=== PATIENT | female | born 1990 | race Caucasian/White ===

== ENCOUNTER 2016-06-19 17:29 | Emergency (ER) | payer BC, MEDICAID ==
[~2016-06-19 17:29] MED LIST: ADVI200T PO; CELE10TA PO; COLA50CA3 PO
[2016-06-19] MEDS ORDERED: PERCOCET 5MG/325MG TAB As Ordered ONE (18:43)
[2016-06-19] MEDS ORDERED: PENICILLIN V POTASSIUM 500 MG TAB As Ordered ONE (18:45)
--- NOTE | 2016-06-19 18:52 | EDDOCDS ---
Physician Documentation [facility] Name: Yovani Hernandez Age: 26 yrs Sex: Female : 1990 Arrival Date: 06/19/2016 Time: 17:29 Bed I9 / 22 Private MD: Leatha Easton Disposition: 06/19/16 18:41 Discharged to Home/Self Care. Impression: Fracture of tooth (traumatic) - with infection. - Condition is Stable. - Discharge Instructions: Tooth Fracture. - Prescriptions for Percocet 5- 325 mg Oral Tablet - take 1 tablet by ORAL route every 6 hours As needed MDD: 4 tabs; 20 tablet. penicillin V potassium 500 mg Oral Tablet - take 1 tablet by ORAL route 4 times per day for 10 days; 40 tablet. - Medication Reconciliation, Local Pharmacy Hours form. - Follow up: Private Physician; When: 1 - 2 days. - Problem is new. - Symptoms are unchanged. - Notes: follow up with your dentist tomorrow. return if worsening symptoms Historical: - Allergies: migraine medicine (heart races); - Home Meds: 1. Xanax 1 mg Oral tab 1 tab four times a day (Last dose: 06/19/2016 15:30) 2. Prozac 20 mg Oral cap 1 cap once daily (Last dose: 06/19/2016 09:00) 3. acetaminophen-codeine 300-30 mg Oral tab 1 tab daily (Last dose: 06/19/2016 16:30) - PMHx: Anxiety; Depression; back pain; - PSHx: none; - Social history: Smoking status: Patient uses tobacco products, light tobacco smoker. No barriers to communication noted, The patient speaks fluent Salvadorean. - Family history: Not pertinent. - : The pt / caregiver states he / she is not on anticoagulants. Home medication list is obtained from the patient. - Exposure Risk Screening:: None identified. 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 5 in. (165.10 cm) (R); 17:33 Body Mass Index 17.31 (47.17 kg, 165.10 cm) elp MDM: 18:40 oxyCODONE-acetaminophen 5 mg-325 mg 1 tabs PO once ordered. ml 18:40 Penicillin VK 500 mg PO once ordered. ml 18:50 Financial registration complete. gjb Administered Medications: 18:47 Drug: Penicillin VK 500 mg [penicillin V potassium 250 mg tablet (2 tabs)] {Note: 1 500 ld5 mg tablet.} Route: PO; 18:48 Drug: oxyCODONE-acetaminophen 1 tabs [oxycodone-acetaminophen 5 mg-325 mg tablet (1 ld5 tabs)] Route: PO; 18:48 Follow up: Response: Confirmed pt not driving.; Pt left department before re-evaluation ld5 is appropriate Signatures: Emery eFrro MD MD ml Jobson, Karen, RN RN Joleen Briceno RN RN Kinza Barajas STEPH
--- NOTE | 2016-06-19 18:52 | EDDOCDS ---
Nurse's Notes [facility] Name: Yovani Hernandez Age: 26 yrs Sex: Female : 1990 Arrival Date: 06/19/2016 Time: 17:29 Bed I9 / 22 Private MD: Leatha Easton Diagnosis: Fracture of tooth (traumatic)-with infection Presentation: 06/19 17:39 Presenting complaint: Patient states: left upper and lower toothache x 3 days. Adult [facility] Sepsis Screening: The patient does not have new or worsening altered mentation. Patient's respiratory rate is less than 22. Systolic blood pressure is greater than 100. Patient has a qSOFA score of 0- Negative Sepsis Screen. Suicide/Homicide risk assessment- the patient denies having any suicidal and/or homicidal ideations and does not present with any other emotional, behavioral or mental health complaints. 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 Transition of care: patient was not received from another setting of care. 17:39 Acuity: [facility]ST Level 5 [facility] 17:39 Method Of Arrival: Walkin/Carried/Asstd [facility] Triage Assessment: 17:43 General: Appears in no apparent distress, Behavior is appropriate for age. Pain: [facility] Location: left upper and left lower dental pain Pain currently is 7 out of 10 on a pain scale. Pt Declines HIV testing. Neurological: Level of Consciousness is awake, alert, Oriented to person, place, time. EENT: Reports pain in left upper and lower dental pain Pain is 7 out of 10 on a pain scale. Respiratory: Airway is patent Respiratory effort is even, unlabored. Derm: Skin is pink, warm & dry. 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 Xanax 1 mg Oral tab 1 tab four times a day (Last dose: 06/19/2016 15:30) 2. Prozac 20 mg Oral cap 1 cap once daily (Last dose: 06/19/2016 09:00) 3. acetaminophen-codeine 300-30 mg Oral tab 1 tab daily (Last dose: 06/19/2016 16:30) - PMHx: Anxiety; Depression; back pain; - PSHx: none; - Social history: Smoking status: Patient uses tobacco products, light tobacco smoker. No barriers to communication noted, The patient speaks fluent Lithuanian. - Family history: Not pertinent. - : The pt / caregiver states he / she is not on anticoagulants. Home medication list is obtained from the patient. - Exposure Risk Screening:: None identified. Screenin:49 Screening information is obtained from the patient. Fall risk: No risks identified. ld5 Assistance ADL's: requires no assistance with activities of daily living. Abuse/DV Screen: The patient / caregiver reports he/she is: not in a situation that causes fear, pain or injury. Nutritional screening: No deficits noted. Advance Directives: There is no active DNR order. home support is adequate. Assessment: 18:49 General: Appears in no apparent distress, Behavior is cooperative. Pain: Location: ld5 mouth Pain currently is 7 out of 10 on a pain scale. Neurological: Level of Consciousness is awake, alert. EENT: Reports pain in left side of mouth. Respiratory: Airway is patent Respiratory effort is even, unlabored. Vital Signs: 17:33 BP 139 / 96; Pulse 92; Resp 16; Temp 97.4(O); Pulse Ox 100% on R/A; Weight 47.17 kg elp (R); Height 5 ft. 5 in. (165.10 cm) (R); 17:33 Body Mass Index 17.31 (47.17 kg, 165.10 cm) [facility] Vitals: 17:33 Log In Time: June 19, 2016 at 17:30. elp ED Course: 17:31 Patient visited by Zora Reddy PCA. elp 17:31 Patient moved to Waiting elp 17:33 Leatha Easton is Private Physician. elp 17:33 Patient moved to Pre RCE elp 17:34 Patient visited by Zora Reddy PCA. elp 17:40 Triage Initiated kpj 18:09 Patient moved to I dsf 18:25 Emery Ferro MD is Attending Physician. 18:25 Patient visited by Emery Ferro MD. 18:49 The patient / caregiver is instructed regarding the plan of care and ED course. Patient ld5 has correct armband on for positive identification. 18:49 No IV's were initiated during this patient's visit. No procedures done that require ld5 assistance. 18:50 Patient visited by Joleen Sotelo,RN. ld5 Administered Medications: 18:47 Drug: Penicillin VK 500 mg [penicillin V potassium 250 mg tablet (2 tabs)] {Note: 1 500 ld5 mg tablet.} Route: PO; 18:48 Drug: oxyCODONE-acetaminophen 1 tabs [oxycodone-acetaminophen 5 mg-325 mg tablet (1 ld5 tabs)] Route: PO; 18:48 Follow up: Response: Confirmed pt not driving.; Pt left department before re-evaluation ld5 is appropriate Order Results: There are currently no results for this order. Outcome: 18:41 Discharge ordered by Provider. 18:49 Discharge Assessment: Patient awake, alert and oriented x 3. No cognitive and/or ld5 functional deficits noted. Patient verbalized understanding of disposition instructions. patient administered narcotics - yes. Pt provided with safe discharge. The following High Risk Discharge criteria are identified: None. Discharged to home ambulatory, with significant other. Condition: stable. Discharge instructions given to patient, Instructed on discharge instructions, follow up and referral plans. medication usage, no driving heavy equipment, benefits of quitting smoking, Demonstrated understanding of instructions, medications, Pt was receptive of discharge instructions/ teaching. Prescriptions given X 2. No special radiology studies were completed. Property :Personal belongings accompany Pt. 18:50 Patient left the ED. ld5 Signatures: Emery Ferro MD MD ml Jobson, Karen, RN RN kpj Dickerson, Laura,Sveta Siu RN, RN RN dsf Patchen, Erin, KALRA ALTERATION INSPECTOR elp MTDD
--- NOTE | 2016-06-21 19:51 | EDDOCDS ---
Physician Documentation [facility] Name: Yovani Hernandez Age: 26 yrs Sex: Female : 1990 Arrival Date: 06/19/2016 Time: 17:29 Bed I9 / 22 Private MD: Leatha Easton Disposition: 06/19/16 18:41 Discharged to Home/Self Care. Impression: Fracture of tooth (traumatic) - with infection. - Condition is Stable. - Discharge Instructions: Tooth Fracture. - Prescriptions for Percocet 5- 325 mg Oral Tablet - take 1 tablet by ORAL route every 6 hours As needed MDD: 4 tabs; 20 tablet. penicillin V potassium 500 mg Oral Tablet - take 1 tablet by ORAL route 4 times per day for 10 days; 40 tablet. - Medication Reconciliation, Local Pharmacy Hours form. - Follow up: Private Physician; When: 1 - 2 days. - Problem is new. - Symptoms are unchanged. - Notes: follow up with your dentist tomorrow. return if worsening symptoms Historical: - Allergies: migraine medicine (heart races); - Home Meds: 1. Xanax 1 mg Oral tab 1 tab four times a day (Last dose: 06/19/2016 15:30) 2. Prozac 20 mg Oral cap 1 cap once daily (Last dose: 06/19/2016 09:00) 3. acetaminophen-codeine 300-30 mg Oral tab 1 tab daily (Last dose: 06/19/2016 16:30) - PMHx: Anxiety; Depression; back pain; - PSHx: none; - Social history: Smoking status: Patient uses tobacco products, light tobacco smoker. No barriers to communication noted, The patient speaks fluent Iraqi. - Family history: Not pertinent. - : The pt / caregiver states he / she is not on anticoagulants. Home medication list is obtained from the patient. - Exposure Risk Screening:: None identified. 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 5 in. (165.10 cm) (R); 17:33 Body Mass Index 17.31 (47.17 kg, 165.10 cm) elp MDM: 18:40 oxyCODONE-acetaminophen 5 mg-325 mg 1 tabs PO once ordered. ml 18:40 Penicillin VK 500 mg PO once ordered. ml 18:50 Financial registration complete. gjb : [facility] Payment Agreement was scanned into [employer] and attached to record. [facility] 06/20 11:25 T-Sheet-- Draft Copy was scanned into [employer] and attached to record. gb Administered Medications: 06/19 18:47 Drug: Penicillin VK 500 mg [penicillin V potassium 250 mg tablet (2 tabs)] {Note: 1 500 ld5 mg tablet.} Route: PO; 18:48 Drug: oxyCODONE-acetaminophen 1 tabs [oxycodone-acetaminophen 5 mg-325 mg tablet (1 ld5 tabs)] Route: PO; 18:48 Follow up: Response: Confirmed pt not driving.; Pt left department before re-evaluation ld5 is appropriate Signatures: Emery Ferro MD MD ml Jobson, Karen, RN RN Irena Spicer, Lucio Reg Joleen Orellana,RN RN Kinza Barajas The chart was reviewed and I authenticate all verbal orders and agree with the evaluation and treatment provided.Attachments: : [facility] Payment Agreement [facility] 06/20 11:25 T-Sheet-- Draft Copy gb Chart Complete MTDD
--- NOTE | 2016-06-21 19:51 | EDDOCDS ---
Nurse's Notes [facility] Name: Yovani Hernandez Age: 26 yrs Sex: Female : 1990 Arrival Date: 06/19/2016 Time: 17:29 Bed I9 / 22 Private MD: Leatha Easton Diagnosis: Fracture of tooth (traumatic)-with infection Presentation: 06/19 17:39 Presenting complaint: Patient states: left upper and lower toothache x 3 days. Adult [facility] Sepsis Screening: The patient does not have new or worsening altered mentation. Patient's respiratory rate is less than 22. Systolic blood pressure is greater than 100. Patient has a qSOFA score of 0- Negative Sepsis Screen. Suicide/Homicide risk assessment- the patient denies having any suicidal and/or homicidal ideations and does not present with any other emotional, behavioral or mental health complaints. 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 Transition of care: patient was not received from another setting of care. 17:39 Acuity: [facility] Level 5 [facility] 17:39 Method Of Arrival: Walkin/Carried/Asstd [facility] Triage Assessment: 17:43 General: Appears in no apparent distress, Behavior is appropriate for age. Pain: [facility] Location: left upper and left lower dental pain Pain currently is 7 out of 10 on a pain scale. Pt Declines HIV testing. Neurological: Level of Consciousness is awake, alert, Oriented to person, place, time. EENT: Reports pain in left upper and lower dental pain Pain is 7 out of 10 on a pain scale. Respiratory: Airway is patent Respiratory effort is even, unlabored. Derm: Skin is pink, warm & dry. 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 Xanax 1 mg Oral tab 1 tab four times a day (Last dose: 06/19/2016 15:30) 2. Prozac 20 mg Oral cap 1 cap once daily (Last dose: 06/19/2016 09:00) 3. acetaminophen-codeine 300-30 mg Oral tab 1 tab daily (Last dose: 06/19/2016 16:30) - PMHx: Anxiety; Depression; back pain; - PSHx: none; - Social history: Smoking status: Patient uses tobacco products, light tobacco smoker. No barriers to communication noted, The patient speaks fluent Pashto. - Family history: Not pertinent. - : The pt / caregiver states he / she is not on anticoagulants. Home medication list is obtained from the patient. - Exposure Risk Screening:: None identified. Screenin:49 Screening information is obtained from the patient. Fall risk: No risks identified. ld5 Assistance ADL's: requires no assistance with activities of daily living. Abuse/DV Screen: The patient / caregiver reports he/she is: not in a situation that causes fear, pain or injury. Nutritional screening: No deficits noted. Advance Directives: There is no active DNR order. home support is adequate. Assessment: 18:49 General: Appears in no apparent distress, Behavior is cooperative. Pain: Location: ld5 mouth Pain currently is 7 out of 10 on a pain scale. Neurological: Level of Consciousness is awake, alert. EENT: Reports pain in left side of mouth. Respiratory: Airway is patent Respiratory effort is even, unlabored. Vital Signs: 17:33 BP 139 / 96; Pulse 92; Resp 16; Temp 97.4(O); Pulse Ox 100% on R/A; Weight 47.17 kg elp (R); Height 5 ft. 5 in. (165.10 cm) (R); 17:33 Body Mass Index 17.31 (47.17 kg, 165.10 cm) [facility] Vitals: 17:33 Log In Time: June 19, 2016 at 17:30. elp ED Course: 17:31 Patient visited by Zora Reddy PCA. elp 17:31 Patient moved to Waiting elp 17:33 Leatha Easton is Private Physician. elp 17:33 Patient moved to Pre RCE elp 17:34 Patient visited by Zora Reddy PCA. elp 17:40 Triage Initiated kpj 18:09 Patient moved to I dsf 18:25 Emery Ferro MD is Attending Physician. 18:25 Patient visited by Emery Ferro MD. 18:49 The patient / caregiver is instructed regarding the plan of care and ED course. Patient ld5 has correct armband on for positive identification. 18:49 No IV's were initiated during this patient's visit. No procedures done that require ld5 assistance. 18:50 Patient visited by Joleen Sotelo,RN. ld5 19:01 [facility] Payment Agreement was scanned into [employer] and attached to record. ashish 06/20 11:25 T-Sheet-- Draft Copy was scanned into [employer] and attached to record. gb Administered Medications: 06/19 18:47 Drug: Penicillin VK 500 mg [penicillin V potassium 250 mg tablet (2 tabs)] {Note: 1 500 ld5 mg tablet.} Route: PO; 18:48 Drug: oxyCODONE-acetaminophen 1 tabs [oxycodone-acetaminophen 5 mg-325 mg tablet (1 ld5 tabs)] Route: PO; 18:48 Follow up: Response: Confirmed pt not driving.; Pt left department before re-evaluation ld5 is appropriate Order Results: There are currently no results for this order. Outcome: 18:41 Discharge ordered by Provider. ml 18:49 Discharge Assessment: Patient awake, alert and oriented x 3. No cognitive and/or ld5 functional deficits noted. Patient verbalized understanding of disposition instructions. patient administered narcotics - yes. Pt provided with safe discharge. The following High Risk Discharge criteria are identified: None. Discharged to home ambulatory, with significant other. Condition: stable. Discharge instructions given to patient, Instructed on discharge instructions, follow up and referral plans. medication usage, no driving heavy equipment, benefits of quitting smoking, Demonstrated understanding of instructions, medications, Pt was receptive of discharge instructions/ teaching. Prescriptions given X 2. No special radiology studies were completed. Property :Personal belongings accompany Pt. 18:50 Patient left the ED. ld5 Signatures: Emery Ferro MD MD ml Jobson, Karen, RN RN Irena Spicer, Reg Reg gb Joleen Sotelo,RN RN Sveta EmeryRN RN Zora Kenney, Kinza Garber Chart Complete MTDD
--- NOTE | 2016-06-21 19:51 | EDDOCDS ---
Physician Documentation [facility] Name: Yovani Hernandez Age: 26 yrs Sex: Female : 1990 Arrival Date: 06/19/2016 Time: 17:29 Bed I9 / 22 Private MD: Leatha Easton Disposition: 06/19/16 18:41 Discharged to Home/Self Care. Impression: Fracture of tooth (traumatic) - with infection. - Condition is Stable. - Discharge Instructions: Tooth Fracture. - Prescriptions for Percocet 5- 325 mg Oral Tablet - take 1 tablet by ORAL route every 6 hours As needed MDD: 4 tabs; 20 tablet. penicillin V potassium 500 mg Oral Tablet - take 1 tablet by ORAL route 4 times per day for 10 days; 40 tablet. - Medication Reconciliation, Local Pharmacy Hours form. - Follow up: Private Physician; When: 1 - 2 days. - Problem is new. - Symptoms are unchanged. - Notes: follow up with your dentist tomorrow. return if worsening symptoms Historical: - Allergies: migraine medicine (heart races); - Home Meds: 1. Xanax 1 mg Oral tab 1 tab four times a day (Last dose: 06/19/2016 15:30) 2. Prozac 20 mg Oral cap 1 cap once daily (Last dose: 06/19/2016 09:00) 3. acetaminophen-codeine 300-30 mg Oral tab 1 tab daily (Last dose: 06/19/2016 16:30) - PMHx: Anxiety; Depression; back pain; - PSHx: none; - Social history: Smoking status: Patient uses tobacco products, light tobacco smoker. No barriers to communication noted, The patient speaks fluent Haitian. - Family history: Not pertinent. - : The pt / caregiver states he / she is not on anticoagulants. Home medication list is obtained from the patient. - Exposure Risk Screening:: None identified. 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 5 in. (165.10 cm) (R); 17:33 Body Mass Index 17.31 (47.17 kg, 165.10 cm) elp MDM: 18:40 oxyCODONE-acetaminophen 5 mg-325 mg 1 tabs PO once ordered. ml 18:40 Penicillin VK 500 mg PO once ordered. ml 18:50 Financial registration complete. gjb : [facility] Payment Agreement was scanned into [employer] and attached to record. [facility] 06/20 11:25 T-Sheet-- Draft Copy was scanned into [employer] and attached to record. gb Administered Medications: 06/19 18:47 Drug: Penicillin VK 500 mg [penicillin V potassium 250 mg tablet (2 tabs)] {Note: 1 500 ld5 mg tablet.} Route: PO; 18:48 Drug: oxyCODONE-acetaminophen 1 tabs [oxycodone-acetaminophen 5 mg-325 mg tablet (1 ld5 tabs)] Route: PO; 18:48 Follow up: Response: Confirmed pt not driving.; Pt left department before re-evaluation ld5 is appropriate Signatures: Emery Ferro MD MD ml Jobson, Karen, RN RN Irena Spicer, Lucio Reg Joleen Orellana,RN RN Kinza Barajas The chart was reviewed and I authenticate all verbal orders and agree with the evaluation and treatment provided.Attachments: : [facility] Payment Agreement [facility] 06/20 11:25 T-Sheet-- Draft Copy gb Chart Complete MTDD
== END 2016-06-19 18:50 | disposition home or self-care (01) ==
LOC: M ED 17:29
DX: K08.89 Other specified disorders of teeth and supporting structures (principal); M54.9 Dorsalgia, unspecified; F41.9 Anxiety disorder, unspecified; F32.9 Major depressive disorder, single episode, unspecified; Z79.899 Other long term (current) drug therapy; Z88.8 Allergy status to other drugs, medicaments and biological substances; F17.210 Nicotine dependence, cigarettes, uncomplicated

== ENCOUNTER → 2016-07-07 | Outpatient (CLI) | payer MEDICAID ==
[2016-07-07 12:04] LABS: MEAN CORPUSCULAR HEMOGLOBIN 28.7 pg (27.0-33.0); MEAN CORPUSCULAR HGB CONC 32.5 g/dl (32.0-36.5); MEAN CORPUSCULAR VOLUME 88.5 fl (80.0-96.0); RED CELL DISTRIBUTION WIDTH 15.1 % (11.5-14.5); WHITE BLOOD COUNT 6.1 K/mm3 (4.0-10.0)
[2016-07-07 12:33] LABS: ALBUMIN 4.2 GM/DL (3.2-5.2); ALBUMIN/GLOBULIN RATIO 1.24 (1.00-1.93); ALKALINE PHOSPHATASE 55 U/L (45-117); ALT/SGPT 13 U/L (12-78); ANION GAP 9 MEQ/L (8-16); AST/SGOT 14 U/L (15-37); BILIRUBIN,TOTAL 0.2 MG/DL (0.2-1.0); BLOOD UREA NITROGEN 7 MG/DL (7-18); CARBON DIOXIDE LEVEL 27 MEQ/L (21-32); CHLORIDE LEVEL 107 MEQ/L (98-107); CHOLESTEROL LEVEL 143 MG/DL (<200); CREATININE FOR GFR 0.54 MG/DL (0.55-1.02); GLOMERULAR FILTRATION RATE > 60.0 (>60); GLUCOSE, FASTING 71 MG/DL (70-105); POTASSIUM SERUM 4.6 MEQ/L (3.5-5.1); SODIUM LEVEL 143 MEQ/L (136-145); TOTAL PROTEIN 7.6 GM/DL (6.4-8.2); TRIGLYCERIDES LEVEL 191 MG/DL (<150)
== END ==
LOC: M LAB 11:23
PROVIDERS: ATTEND Family Medicine
DX: E04.1 Nontoxic single thyroid nodule (principal); E03.9 Hypothyroidism, unspecified

== ENCOUNTER → 2016-07-10 | Outpatient (CLI) | payer BC, OTHER ==
--- NOTE | 2016-07-10 14:57 | REP ---
THYROID ULTRASOUND: Real-time sonographic evaluation of thyroid performed. Both lobes are normal in size and echotexture, right lobe measuring 4.3 x 1.1 x 1.0 cm, and left lobe 4.0 x 1.2 x 1.2 cm. There is no evidence of cystic or solid nodule bilaterally. IMPRESSION: Negative thyroid ultrasound. Signed by Donaldo Chamorro MD 07/10/2016 03:58 P
== END ==
LOC: M RAD 13:48
PROVIDERS: ATTEND Family Medicine
DX: E05.90 Thyrotoxicosis, unspecified without thyrotoxic crisis or storm (principal); D49.7 Neoplasm of unspecified behavior of endocrine glands and other parts of nervous system

== ENCOUNTER → 2017-03-18 | Outpatient (CLI) | payer OTHER ==
[2017-03-18 08:57] LABS: MEAN CORPUSCULAR VOLUME 87.1 fl (80.0-96.0); PLATELET COUNT, AUTOMATED 163 10^3/uL (150-450); RED CELL DISTRIBUTION WIDTH 15.6 % (11.5-14.5); WHITE BLOOD COUNT 5.6 10^3/uL (4.0-10.0)
[2017-03-18 09:35] LABS: ALBUMIN 4.4 GM/DL (3.2-5.2); ALBUMIN/GLOBULIN RATIO 1.42 (1.00-1.93); ALKALINE PHOSPHATASE 38 U/L (45-117); ALT/SGPT 16 U/L (12-78); ANION GAP 8 MEQ/L (8-16); AST/SGOT 19 U/L (7-37); BILIRUBIN,TOTAL 0.3 MG/DL (0.2-1.0); BLOOD UREA NITROGEN 5 MG/DL (7-18); CALCIUM LEVEL 8.8 MG/DL (8.5-10.1); CARBON DIOXIDE LEVEL 27 MEQ/L (21-32); CHLORIDE LEVEL 106 MEQ/L (98-107); CHOLESTEROL LEVEL 138 MG/DL (<200); CREATININE FOR GFR 0.68 MG/DL (0.55-1.02); GLOMERULAR FILTRATION RATE > 60.0 (>60); GLUCOSE, FASTING 110 MG/DL (70-105); POTASSIUM SERUM 3.7 MEQ/L (3.5-5.1); SODIUM LEVEL 141 MEQ/L (136-145); TOTAL PROTEIN 7.5 GM/DL (6.4-8.2); TRIGLYCERIDES LEVEL 129 MG/DL (<150)
== END ==
LOC: M LAB 08:28
PROVIDERS: ATTEND Family Medicine
DX: D64.9 Anemia, unspecified (principal); R53.83 Other fatigue

== ENCOUNTER → 2017-04-15 | Outpatient (REF) | payer OTHER ==
[2017-04-15 13:17] LABS: MEAN CORPUSCULAR HGB CONC 31.5 g/dl (32.0-36.5); MEAN CORPUSCULAR VOLUME 85.6 fl (80.0-96.0); PLATELET COUNT, AUTOMATED 149 10^3/uL (150-450); RED CELL DISTRIBUTION WIDTH 15.2 % (11.5-14.5)
[2017-04-15 13:44] LABS: HCG, SERUM QUANTITATIVE 257 MIU/ML
[2017-04-15 13:57] LABS: HBsAg Prenatal NEGATIVE (NEGATIVE)
== END ==
LOC: M LAB REF 12:42
PROVIDERS: ATTEND Advanced Practice Midwife
DX: Z32.01 Encounter for pregnancy test, result positive (principal); O36.80X0 Pregnancy with inconclusive fetal viability, not applicable or unspecified; Z3A.00 Weeks of gestation of pregnancy not specified

== ENCOUNTER → 2017-04-20 | Outpatient (REF) | payer OTHER | LOC: M LAB REF 16:29 | PROVIDERS: ATTEND Obstetrics & Gynecology | DX: O36.80X0 Pregnancy with inconclusive fetal viability, not applicable or unspecified (principal) ==

== ENCOUNTER 2017-05-03 16:33 | Emergency (ER) | payer OTHER ==
[~2017-05-03] VITALS: Ht 165.1 cm; Wt 46.4 kg
[2017-05-03] MEDS ORDERED: XANA1TAB2 PO (16:42)
[2017-05-03] MEDS ORDERED: PREN1TAB11 PO (16:42)
[2017-05-03] MEDS ORDERED: NS 1,000 ML IV SCH (17:24)
[2017-05-03 18:04] LABS: SPECIFIC GRAVITY UR AUTO RFX 1.002 (1.002-1.035); SQUAM EPITHELIAL CELL UR AURFX 0 /HPF (0-6)
[2017-05-03 18:11] LABS: BASO % 0.3 % (0.0-1.0); EOS # 0.1 10^3/uL (0.0-0.50); EOS % 1.1 % (0.0-3.0); IMMATURE GRANULOCYTE % 0.3 % (0-0); LYMPH # 1.2 10^3/uL (1.5-6.5); LYMPH % 10.3 % (24.0-44.0); MEAN CORPUSCULAR HEMOGLOBIN 28.1 pg (27.0-33.0); MEAN CORPUSCULAR HGB CONC 32.3 g/dl (32.0-36.5); MEAN CORPUSCULAR VOLUME 87.1 fl (80.0-96.0); MONO # 0.4 10^3/uL (0.0-0.8); MONO % 3.5 % (0.0-5.0); NEUTROPHILS # 10.1 10^3/uL (1.8-7.7); NEUTROPHILS % 84.5 % (36.0-66.0); PLATELET COUNT, AUTOMATED 157 10^3/uL (150-450); RED CELL DISTRIBUTION WIDTH 17.2 % (11.5-14.5)
[2017-05-03 18:50] LABS: ANION GAP 8 MEQ/L (8-16); BLOOD UREA NITROGEN 8 MG/DL (7-18); CALCIUM LEVEL 9.1 MG/DL (8.5-10.1); CARBON DIOXIDE LEVEL 25 MEQ/L (21-32); CHLORIDE LEVEL 104 MEQ/L (98-107); CREATININE FOR GFR 0.45 MG/DL (0.55-1.02); GLOMERULAR FILTRATION RATE > 60.0 (>60); GLUCOSE, FASTING 78 MG/DL (70-105); HCG, SERUM QUANTITATIVE 21487 MIU/ML; POTASSIUM SERUM 3.5 MEQ/L (3.5-5.1); SODIUM LEVEL 137 MEQ/L (136-145)
[2017-05-03] MEDS ORDERED: metroNIDAZOLE (FLAGYL) 500 MG TAB PO ONE ×3 (19:15→21:15)
--- NOTE | 2017-05-03 20:00 | REPUSA ---
Clinical history: vaginal bleeding. Findings: Real-time transabdominal and transvaginal ultrasound images of the pelvis were obtained. Th ere is a single live intrauterine . [place] rump length measures 0.5 cm. heart rate allyssa ures 120 sex BPM. Is a complex fluid collection adjacent to the gestational sac measuring 4.8 x 1.9 x 4.1 cm. The left ovary measures 3.7 x 3.4 x 2.9 cm. There is a complex left ovarian cyst measuring 2 .9 x 2.2 x 2.1 cm. The right ovary measures 2.9 x 1.7 x 1.7 cm. There is no evidence of free fluid. Impression: 1. Single live intrauterine measuring 6 weeks 2 days, with estimated due date of each . 2. Moderate sized subchorionic hemorrhage. 3. Complex hemorrhagic left ovarian cyst, likely a corpus luteum cyst.
[2017-05-03] MEDS ORDERED: METR1TAB66 PO (20:25)
[2017-05-03 20:52] VITALS: BP 101/56
== END 2017-05-03 21:23 | disposition home or self-care (01) ==
LOC: M ED 16:33
DX: O20.0 Threatened abortion (principal); O20.8 Other hemorrhage in early pregnancy; O23.591 Infection of other part of genital tract in pregnancy, first trimester; O99.331 Smoking (tobacco) complicating pregnancy, first trimester; F17.210 Nicotine dependence, cigarettes, uncomplicated; Z3A.01 Less than 8 weeks gestation of pregnancy

== ENCOUNTER → 2017-05-15 | Outpatient (REF) | payer OTHER | LOC: M LAB REF 12:51 | DX: Z34.81 Encounter for supervision of other normal pregnancy, first trimester (principal) ==

== ENCOUNTER → 2017-05-18 | Outpatient (REF) | payer OTHER ==
[2017-05-18 19:06] LABS: HCG, SERUM QUANTITATIVE 69370 MIU/ML
== END ==
LOC: M LAB REF 17:22
DX: O20.0 Threatened abortion (principal)

== ENCOUNTER → 2017-06-12 | Outpatient (REF) | payer OTHER ==
[2017-06-12 16:16] LABS: CHLAMYDIA DNA AMPLIFICATION NEGATIVE (NEGATIVE); GC DNA AMPLIFICATION NEGATIVE (NEGATIVE)
== END ==
LOC: M LAB REF 13:41
DX: Z11.3 Encounter for screening for infections with a predominantly sexual mode of transmission (principal)
CPT/HCPCS: 87591

== ENCOUNTER 2017-07-19 09:03 | Emergency (ER) | payer OTHER ==
[2017-07-19] MEDS: ACETAMINOPHEN 325 MG TAB PO (10:00)
[2017-07-19 10:07] LABS: KETONE, URINE AUTO RFX NEGATIVE (NEGATIVE); MUCUS, URINE RFX SMALL (NEGATIVE); NITRITE, URINE AUTO RFX NEGATIVE (NEGATIVE); RBC, URINE AUTO RFX 11 /HPF (0-3); SPECIFIC GRAVITY UR AUTO RFX 1.013 (1.002-1.035); SQUAM EPITHELIAL CELL UR AURFX 5 /HPF (0-6); WBC, URINE AUTO RFX 3 /HPF (0-3)
[2017-07-19 10:08] LABS: LEUKOCYTE ESTERASE UR AUTO RFX TRACE (NEGATIVE)
[2017-07-19 11:30] LABS: CHLAMYDIA DNA AMPLIFICATION NEGATIVE (NEGATIVE); GC DNA AMPLIFICATION NEGATIVE (NEGATIVE)
== END 2017-07-19 11:50 | disposition home or self-care (01) ==
LOC: M ED 09:03
DX: O26.892 Other specified pregnancy related conditions, second trimester (principal); O26.852 Spotting complicating pregnancy, second trimester; O99.342 Other mental disorders complicating pregnancy, second trimester; F33.9 Major depressive disorder, recurrent, unspecified; Z3A.17 17 weeks gestation of pregnancy; Z79.899 Other long term (current) drug therapy
CPT/HCPCS: 76817

== ENCOUNTER → 2017-09-01 | Outpatient (REF) | payer OTHER ==
[2017-09-01 14:52] LABS: AMPHETAMINES URINE REFLEX NEGATIVE (NEGATIVE); BARBITURATES URINE REFLEX NEGATIVE (NEGATIVE); CANNABINOIDS URINE REFLEX NEGATIVE (NEGATIVE); COCAINE METABOLITE URINE REFLE NEGATIVE (NEGATIVE); METHADONE URINE REFLEX NEGATIVE (NEGATIVE); OPIATES URINE REFLEX NEGATIVE (NEGATIVE); PHENCYCLIDINE URINE REFLEX NEGATIVE (NEGATIVE)
[2017-09-01 15:05] LABS: BENZODIAZEPINES URINE REFLEX PENDING CONFIRMATION (NEGATIVE)
== END ==
LOC: M LAB REF 13:19
DX: O41.02X2 Oligohydramnios, second trimester, fetus 2 (principal)

== ENCOUNTER 2017-09-05 03:49 | Inpatient (IN) | payer OTHER ==
[2017-09-05] MEDS ORDERED: OXYTOCIN 30 UNITS IN 0.9% NaCl 500ML IV BAG (J2590) As Ordered (04:13)
[2017-09-05] MEDS: LR 1,000 ML IV (04:45)
[2017-09-05] MEDS: OXYTOCIN DRIP 30 UNITS in APPROPRIATE DILUENT 1 EA IV (04:50)
[2017-09-05] MEDS ORDERED: ACETAMINOPHEN 500 MG TAB PO (05:00)
[2017-09-05] MEDS ORDERED: DOCUSATE SODIUM 100 MG CAP PO (05:00)
[2017-09-05] MEDS ORDERED: IBUPROFEN 800 MG TAB PO (05:00)
[2017-09-05] MEDS ORDERED: ALPRAZolam 0.25 MG TAB PO (05:00)
[2017-09-05] MEDS ORDERED: METHYLERGONOVINE MALEATE 0.2 MG TAB PO (05:00)
[2017-09-05] MEDS: ONDANSETRON 4MG/2ML VIAL (J2405) IV ×2 (05:26→09:30)
[2017-09-05 06:13] LABS: BASO % 0.2 % (0.0-1.0); EOS % 0.3 % (0.0-3.0); HEMATOCRIT 32.8 % (36.0-47.0); HEMOGLOBIN 10.8 g/dl (12.0-15.5); IMMATURE GRANULOCYTE % 0.6 % (0-3.0); LYMPH # 0.8 10^3/uL (1.5-6.5); LYMPH % 6.5 % (24.0-44.0); MEAN CORPUSCULAR HEMOGLOBIN 30.5 pg (27.0-33.0); MEAN CORPUSCULAR HGB CONC 32.9 g/dl (32.0-36.5); MEAN CORPUSCULAR VOLUME 92.7 fl (80.0-96.0); MONO # 0.3 10^3/uL (0.0-0.8); MONO % 2.7 % (0.0-5.0); NEUTROPHILS # 11.3 10^3/uL (1.8-7.7); NEUTROPHILS % 89.7 % (36.0-66.0); PLATELET COUNT, AUTOMATED 136 10^3/uL (150-450); RED BLOOD COUNT 3.54 10^6/uL (4.00-5.40); RED CELL DISTRIBUTION WIDTH 12.3 % (11.5-14.5); WHITE BLOOD COUNT 12.6 10^3/uL (4.0-10.0)
[2017-09-05 06:33] LABS: ALBUMIN 3.2 GM/DL (3.2-5.2); ALBUMIN/GLOBULIN RATIO 0.91 (1.00-1.93); ALKALINE PHOSPHATASE 76 U/L (45-117); ALT/SGPT 8 U/L (12-78); ANION GAP 7 MEQ/L (8-16); AST/SGOT 16 U/L (7-37); BILIRUBIN,TOTAL 0.2 MG/DL (0.2-1.0); BLOOD UREA NITROGEN 7 MG/DL (7-18); CALCIUM LEVEL 7.8 MG/DL (8.5-10.1); CARBON DIOXIDE LEVEL 22 MEQ/L (21-32); CHLORIDE LEVEL 110 MEQ/L (98-107); CREATININE FOR GFR 0.38 MG/DL (0.55-1.30); GLOMERULAR FILTRATION RATE > 60.0 (>60); GLUCOSE, FASTING 80 MG/DL (70-100); POTASSIUM SERUM 3.6 MEQ/L (3.5-5.1); SODIUM LEVEL 139 MEQ/L (136-145); TOTAL PROTEIN 6.7 GM/DL (6.4-8.2)
[2017-09-05] MEDS: RHOGAM 300 MCG (1500 IU) INJ (J2790) IM (07:12)
[2017-09-05] MEDS: MEASLES,MUMPS,RUBELLA VACCINE INJ (MMR-II) (90707) SC (07:13)
[2017-09-05] MEDS: PRENATAL VITAMINS CHEWABLE TABLET PO (09:00)
[2017-09-05 09:35] LABS: AMPHETAMINES URINE REFLEX NEGATIVE (NEGATIVE); BARBITURATES URINE REFLEX NEGATIVE (NEGATIVE); CANNABINOIDS URINE REFLEX NEGATIVE (NEGATIVE); COCAINE METABOLITE URINE REFLE NEGATIVE (NEGATIVE); METHADONE URINE REFLEX NEGATIVE (NEGATIVE); OPIATES URINE REFLEX NEGATIVE (NEGATIVE); PHENCYCLIDINE URINE REFLEX NEGATIVE (NEGATIVE)
[2017-09-05 09:42] LABS: BENZODIAZEPINES URINE REFLEX PENDING CONFIRMATION (NEGATIVE)
== END 2017-09-05 12:16 | disposition home or self-care (01) | DRG 560 ==
LOC: M LDO 03:49 → M OBS 04:01 → M LDI 04:01
PROC: 10E0XZZ Delivery of Products of Conception, External Approach (ICD-10-PCS; principal; 2017-09-05)
DX: O36.4XX0 Maternal care for intrauterine death, not applicable or unspecified (principal); O45.92 Premature separation of placenta, unspecified, second trimester; O41.02X0 Oligohydramnios, second trimester, not applicable or unspecified; O32.1XX0 Maternal care for breech presentation, not applicable or unspecified; O99.342 Other mental disorders complicating pregnancy, second trimester; Z37.1 Single stillbirth; Z3A.24 24 weeks gestation of pregnancy; F41.9 Anxiety disorder, unspecified; O99.332 Smoking (tobacco) complicating pregnancy, second trimester; F17.210 Nicotine dependence, cigarettes, uncomplicated

== ENCOUNTER 2017-09-07 17:37 | Emergency (ER) | payer OTHER ==
[2017-09-07] MEDS: NS 1,000 ML IV (18:45)
[2017-09-07 19:10] LABS: BASO % 0.4 % (0.0-1.0); EOS # 0.1 10^3/uL (0.0-0.50); EOS % 0.7 % (0.0-3.0); HEMOGLOBIN 11.6 g/dl (12.0-15.5); IMMATURE GRANULOCYTE % 0.1 % (0-3.0); LYMPH # 1.7 10^3/uL (1.5-6.5); LYMPH % 23.4 % (24.0-44.0); MEAN CORPUSCULAR HEMOGLOBIN 30.6 pg (27.0-33.0); MEAN CORPUSCULAR HGB CONC 33.1 g/dl (32.0-36.5); MEAN CORPUSCULAR VOLUME 92.3 fl (80.0-96.0); MONO # 0.3 10^3/uL (0.0-0.8); MONO % 4.1 % (0.0-5.0); NEUTROPHILS % 71.3 % (36.0-66.0); PLATELET COUNT, AUTOMATED 201 10^3/uL (150-450); RED BLOOD COUNT 3.79 10^6/uL (4.00-5.40); RED CELL DISTRIBUTION WIDTH 12.7 % (11.5-14.5); WHITE BLOOD COUNT 7.1 10^3/uL (4.0-10.0)
[2017-09-07 19:21] LABS: KETONE, URINE AUTO RFX NEGATIVE (NEGATIVE); NITRITE, URINE AUTO RFX NEGATIVE (NEGATIVE); RBC, URINE AUTO RFX 61 /HPF (0-3); SPECIFIC GRAVITY UR AUTO RFX 1.006 (1.002-1.035); SQUAM EPITHELIAL CELL UR AURFX 1 /HPF (0-6)
[2017-09-07 19:22] LABS: LEUKOCYTE ESTERASE UR AUTO RFX 2+ (NEGATIVE); WBC, URINE AUTO RFX 34 /HPF (0-3)
[2017-09-07 19:42] LABS: ANION GAP 11 MEQ/L (8-16); BLOOD UREA NITROGEN 7 MG/DL (7-18); CALCIUM LEVEL 8.8 MG/DL (8.5-10.1); CARBON DIOXIDE LEVEL 25 MEQ/L (21-32); CHLORIDE LEVEL 105 MEQ/L (98-107); CREATININE FOR GFR 0.49 MG/DL (0.55-1.30); GLOMERULAR FILTRATION RATE > 60.0 (>60); GLUCOSE, FASTING 75 MG/DL (70-100); HCG, SERUM QUANTITATIVE 722 MIU/ML; POTASSIUM SERUM 3.7 MEQ/L (3.5-5.1); SODIUM LEVEL 141 MEQ/L (136-145)
[2017-09-07 19:42] LABS: LACTIC ACID SEPSIS PROTOCOL 1.2 MMOL/L (0.4-2.0)
[2017-09-07] MEDS: NITROFURANTOIN (MACROBID) 100 MG CAP PO (21:13)
== END 2017-09-07 21:21 | disposition home or self-care (01) ==
LOC: M ED 17:37
DX: O86.20 Urinary tract infection following delivery, unspecified (principal); O99.345 Other mental disorders complicating the puerperium; O99.335 Smoking (tobacco) complicating the puerperium; Z87.59 Personal history of other complications of pregnancy, childbirth and the puerperium; Z79.899 Other long term (current) drug therapy; Z88.8 Allergy status to other drugs, medicaments and biological substances
CPT/HCPCS: 76856

== ENCOUNTER → 2017-09-18 | Outpatient (REF) | payer OTHER ==
[2017-09-18 16:43] LABS: AMORPHOUS SEDIMENT SMALL (NEGATIVE); APPEARANCE, URINE HAZY (CLEAR); BACTERIA, URINE AUTO 1+ (NEGATIVE); BILIRUBIN, URINE AUTO NEGATIVE (NEGATIVE); BLOOD, URINE BLOOD 2+ (NEGATIVE); COLOR, URINE YELLOW (YELLOW); GLUCOSE, URINE (UA) AUTO NEGATIVE (NEGATIVE); KETONE, URINE AUTO TRACE mg/dL (NEGATIVE); LEUKOCYTE ESTERASE, URINE AUTO 2+ (NEGATIVE); MUCUS, URINE SMALL (NEGATIVE); NITRITE, URINE AUTO NEGATIVE (NEGATIVE); PROTEIN, URINE AUTO NEGATIVE (NEGATIVE); RBC, URINE AUTO 6 /HPF (0-3); SPECIFIC GRAVITY URINE AUTO 1.006 (1.002-1.035); SQUAMOUS EPITHELIAL CELL UR AU 1 /HPF (0-6); TRANSITIONAL EPITHELIAL AUTO 2 /HPF; UROBILINOGEN, URINE AUTO 0.2 mg/dL (0.0-2.0); WBC, URINE AUTO 6 /HPF (0-3)
== END ==
LOC: M LAB REF 16:15
DX: N39.0 Urinary tract infection, site not specified (principal)

== ENCOUNTER 2017-12-11 17:11 | Emergency (ER) | payer OTHER | END 2017-12-11 21:18 | disposition home or self-care (01) | LOC: M ED 17:11 | DX: R07.89 Other chest pain (principal); F41.9 Anxiety disorder, unspecified; F17.200 Nicotine dependence, unspecified, uncomplicated; Z88.8 Allergy status to other drugs, medicaments and biological substances; Z79.899 Other long term (current) drug therapy | CPT/HCPCS: 71046 ==

== ENCOUNTER 2018-03-13 18:04 | Emergency (ER) | payer OTHER ==
[2018-03-13] MEDS: NS 1,000 ML IV (18:30)
[2018-03-13] MEDS: ONDANSETRON 4MG/2ML VIAL (J2405) IV (18:30)
[2018-03-13 19:18] LABS: BASO % 0.3 % (0.0-1.0); EOS # 0.1 10^3/uL (0.0-0.50); EOS % 1.3 % (0.0-3.0); HEMATOCRIT 37.2 % (36.0-47.0); HEMOGLOBIN 12.1 g/dl (12.0-15.5); IMMATURE GRANULOCYTE % 0.4 % (0-3.0); LYMPH # 0.9 10^3/uL (1.5-6.5); LYMPH % 12.3 % (24.0-44.0); MEAN CORPUSCULAR HEMOGLOBIN 29.2 pg (27.0-33.0); MEAN CORPUSCULAR HGB CONC 32.5 g/dl (32.0-36.5); MEAN CORPUSCULAR VOLUME 89.9 fl (80.0-96.0); MONO # 0.3 10^3/uL (0.0-0.8); MONO % 4.3 % (0.0-5.0); NEUTROPHILS # 6.2 10^3/uL (1.8-7.7); NEUTROPHILS % 81.4 % (36.0-66.0); PLATELET COUNT, AUTOMATED 119 10^3/uL (150-450); RED BLOOD COUNT 4.14 10^6/uL (4.00-5.40); RED CELL DISTRIBUTION WIDTH 14.2 % (11.5-14.5); WHITE BLOOD COUNT 7.6 10^3/uL (4.0-10.0)
[2018-03-13 19:19] LABS: KETONE, URINE AUTO RFX NEGATIVE (NEGATIVE); LEUKOCYTE ESTERASE UR AUTO RFX NEGATIVE (NEGATIVE); NITRITE, URINE AUTO RFX NEGATIVE (NEGATIVE); RBC, URINE AUTO RFX 1 /HPF (0-3); SPECIFIC GRAVITY UR AUTO RFX 1.008 (1.002-1.035); SQUAM EPITHELIAL CELL UR AURFX 0 /HPF (0-6); WBC, URINE AUTO RFX 0 /HPF (0-3)
[2018-03-13 19:35] LABS: INR 1.13; PROTHROMBIN TIME 14.7 SECONDS (12.1-14.4)
[2018-03-13 19:36] LABS: PARTIAL THROMBOPLASTIN TIME 31.4 SECONDS (25.4-37.6)
[2018-03-13 19:50] LABS: INFLUENZA A AMPLIFICATION NEGATIVE (NEGATIVE); INFLUENZA B AMPLIFICATION NEGATIVE (NEGATIVE)
[2018-03-13 19:58] LABS: ALBUMIN 4.5 GM/DL (3.2-5.2); ALBUMIN/GLOBULIN RATIO 1.55 (1.00-1.93); ALKALINE PHOSPHATASE 46 U/L (45-117); ALT/SGPT 15 U/L (12-78); ANION GAP 8 MEQ/L (8-16); AST/SGOT 15 U/L (7-37); BILIRUBIN,DIRECT < 0.1 MG/DL (0.0-0.2); BILIRUBIN,TOTAL 0.2 MG/DL (0.2-1.0); BLOOD UREA NITROGEN 12 MG/DL (7-18); CALCIUM LEVEL 9.1 MG/DL (8.5-10.1); CARBON DIOXIDE LEVEL 26 MEQ/L (21-32); CHLORIDE LEVEL 107 MEQ/L (98-107); CREATININE FOR GFR 0.62 MG/DL (0.55-1.30); FREE T4 1.26 NG/DL (0.76-1.46); GLOMERULAR FILTRATION RATE > 60.0 (>60); GLUCOSE, FASTING 111 MG/DL (70-100); LDH LACTATE DEHYDROGENASE 174 U/L (84-246); MAGNESIUM LEVEL 2.1 MG/DL (1.8-2.4); POTASSIUM SERUM 3.7 MEQ/L (3.5-5.1); SODIUM LEVEL 141 MEQ/L (136-145); TOTAL PROTEIN 7.4 GM/DL (6.4-8.2)
== END 2018-03-13 20:40 | disposition home or self-care (01) ==
LOC: M ED 18:04
DX: D69.6 Thrombocytopenia, unspecified (principal); F41.9 Anxiety disorder, unspecified; Z88.8 Allergy status to other drugs, medicaments and biological substances; F17.210 Nicotine dependence, cigarettes, uncomplicated
CPT/HCPCS: 71046

== ENCOUNTER → 2018-05-21 | Outpatient (REF) | payer OTHER ==
[~2018-05-21] MED LIST changes: +IBUP-1114 PO; +MACR100C43 PO; +MAPA500T2 PO; +METR-201 PO; +PREN1TAB11 PO; +XANA1TAB2 PO; +ZOFR4TAB14 PO
[2018-05-21 20:09] LABS: INFLUENZA A AMPLIFICATION NEGATIVE (NEGATIVE); INFLUENZA B AMPLIFICATION NEGATIVE (NEGATIVE)
== END ==
LOC: M LAB REF 19:01
PROVIDERS: ATTEND Physician Assistant Medical
DX: J11.1 Influenza due to unidentified influenza virus with other respiratory manifestations (principal)

== ENCOUNTER → 2018-07-23 | Outpatient (REF) | payer OTHER ==
[2018-07-23 14:53] LABS: INFLUENZA A AMPLIFICATION POSITIVE (NEGATIVE); INFLUENZA B AMPLIFICATION NEGATIVE (NEGATIVE)
== END ==
LOC: M LAB REF 14:04
PROVIDERS: ATTEND Physician Assistant
DX: J11.1 Influenza due to unidentified influenza virus with other respiratory manifestations (principal)

== ENCOUNTER 2019-02-14 09:59 | Emergency (ER) | payer OTHER ==
[~2019-02-14] VITALS: Ht 165.1 cm; Wt 93.8 kg
[~2019-02-14 09:59] MED LIST changes: -METR-201 PO; +METR-265 PO
[2019-02-14] MEDS ORDERED: ALPR0.25 (10:08)
[2019-02-14 11:09] LABS: BASO % 0.6 % (0.0-1.0); EOS # 0.1 10^3/uL (0.0-0.5); HEMATOCRIT 41.8 % (36.0-47.0); HEMOGLOBIN 13.2 g/dl (12.0-15.5); LYMPH % 14.2 % (24.0-44.0); MEAN CORPUSCULAR HEMOGLOBIN 29.3 pg (27.0-33.0); MEAN CORPUSCULAR HGB CONC 31.6 g/dl (32.0-36.5); MEAN CORPUSCULAR VOLUME 92.7 fl (80.0-96.0); MONO # 0.4 10^3/uL (0.0-0.8); MONO % 5.3 % (0.0-5.0); NEUTROPHILS # 5.4 10^3/uL (1.5-8.5); NEUTROPHILS % 78.6 % (36.0-66.0); PLATELET COUNT, AUTOMATED 177 10^3/uL (150-450); RED BLOOD COUNT 4.51 10^6/uL (4.00-5.40); WHITE BLOOD COUNT 6.9 10^3/uL (4.0-10.0)
[2019-02-14 11:33] LABS: AMPHETAMINES LEVEL URINE NEGATIVE (NEGATIVE); BARBITURATES URINE NEGATIVE (NEGATIVE); BENZODIAZEPINES URINE NEGATIVE (NEGATIVE); CANNABINOIDS URINE NEGATIVE (NEGATIVE); COCAINE METABOLITE URINE NEGATIVE (NEGATIVE); METHADONE URINE NEGATIVE (NEGATIVE); OPIATES URINE NEGATIVE (NEGATIVE); PHENCYCLIDINE URINE NEGATIVE (NEGATIVE)
[2019-02-14 11:45] LABS: BLOOD UREA NITROGEN 6 MG/DL (7-18); CALCIUM LEVEL 9.5 MG/DL (8.5-10.1); CARBON DIOXIDE LEVEL 30 MEQ/L (21-32); CHLORIDE LEVEL 104 MEQ/L (98-107); CK-MB VALUE MASS < 1.0 NG/ML (<3.6); CPK CREATINE PHOSPHOKINASE 82 U/L (26-192); CREATININE FOR GFR 0.64 MG/DL (0.55-1.30); ETHYL ALCOHOL (ETHANOL) < 0.003 % (0.000-0.010); FREE T4 1.11 NG/DL (0.76-1.46); GLOMERULAR FILTRATION RATE > 60.0 (>60); GLUCOSE, FASTING 93 MG/DL (70-100); MB/CK RELATIVE INDEX 1.22 (< OR =4); POTASSIUM SERUM 4.4 MEQ/L (3.5-5.1); SODIUM LEVEL 138 MEQ/L (136-145); THYROID STIMULATING HORMONE 0.612 uIU/ML (0.358-3.740); TROPONIN I < 0.02 NG/ML (< 0.10)
[2019-02-14] MEDS ORDERED: NS 1,000 ML IV ONE (12:00)
--- NOTE | 2019-02-14 12:04 | REP ---
CHEST TWO VIEWS: There is no evidence of acute infiltrate. No pleural effusion is seen. The heart is normal in size. The mediastinal silhouette is unremarkable. The visualized osseous structures are intact. IMPRESSION: No acute pulmonary disease. Electronically Signed by Donaldo Chamorro MD 02/14/2019 11:31 P
--- NOTE | 2019-02-14 12:20 | REP ---
CT BRAIN WITHOUT CONTRAST: HISTORY: Dizziness. Comparison is made with multiple prior brain imaging studies the most recent of which is from March 13, 2018 and the most remote of which is from September 10, 2011. FINDINGS: There is a low-density lesion in the right parietal lobe white matter again noted. This may be very gradually enlarging. It measures 2.1 cm in greatest transverse dimension today compared to 1.5 cm in greatest transverse dimension September 10, 2011. On March 13, 2018, it measured 2.0 cm by my measurement in greatest transverse dimension. It is otherwise unchanged. Chamorro-white differentiation pattern is otherwise intact. There is no evidence of extra-axial fluid collection, mass, infarct or hemorrhage. Bony calvarium is intact. No bony destructive lesion is seen. Visualized paranasal sinuses are clear. 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 This appears to be very gradually enlarging, 1.5 cm in 2011. Otherwise normal noncontrast head CT. Electronically Signed by Carlos Manuel Martinez MD 02/14/2019 03:05 P
--- NOTE | 2019-02-14 13:31 | REP ---
CT ABDOMEN AND PELVIS WITHOUT CONTRAST: CT abdomen and pelvis performed without oral or IV contrast. Sagittal and coronal reconstruction images are performed. Visualized lung bases are clear. The liver is grossly unremarkable. Spleen appears mildly enlarged with a length of approximately 15.2 cm. Adrenals and pancreas are grossly unremarkable. There is an intrarenal calculus in the lower left kidney 3 mm in diameter. There is no evidence of hydronephrosis bilaterally. There is no abdominal aortic aneurysm. No gross adenopathy is seen. No free air is seen. There is no definite bowel wall thickening. There is mild free fluid in the pelvis which is probably physiologic in nature. Urinary bladder is not well distended and not well evaluation. IMPRESSION: Left intrarenal calculus 3 mm. No hydronephrosis bilaterally. Mild free fluid in the pelvis is likely physiologic. There is mild splenomegaly, length of the spleen is 15.2 cm. Electronically Signed by Donaldo Chamorro MD 02/14/2019 11:35 P
[2019-02-14] MEDS ORDERED: MECL-68 PO (13:45)
[2019-02-14 14:01] VITALS: BP 123/77
--- NOTE | 2019-02-15 00:38 | ECGEPIP ---
[facility] - ED Test Date: 2019-02-14 Pat Name: NANY CUMMINGS Department: Room: - Gender: Female [employer]: ELE : 1990 Requested By: LUCIANA Velasco PA-C Order Number: [id number] Reading MD: Vinicius Tinoco Measurements Intervals [place] Rate: 81 P: 65 WI: 153 QRS: 69 QRSD: 96 T: 57 QT: 358 QTc: 417 Interpretive Statements SINUS RHYTHM Electronically Signed on 02-15-2019 0:38:21 EDT by Vinicius Tinoco
--- NOTE | 2019-02-15 11:24 | ED PDOC ---
Post-Departure Follow-Up dr lopez faxed formal report of ct abd/p for fu. Dr Kothari faxed formal report of ct head for fu Emery Jaimes MD Feb 15, 2019 11:23
== END 2019-02-14 14:02 | disposition home or self-care (01) ==
LOC: M ED 09:59
DX: G93.0 Cerebral cysts (principal); N20.0 Calculus of kidney; R42 Dizziness and giddiness; F41.9 Anxiety disorder, unspecified; F32.9 Major depressive disorder, single episode, unspecified; R51 Headache; F17.200 Nicotine dependence, unspecified, uncomplicated; Z79.899 Other long term (current) drug therapy; Z88.8 Allergy status to other drugs, medicaments and biological substances
CPT/HCPCS: 70450; 71046; 74176; 80048; 80307; 81001; 82550; 82553; 83735; 84439; 84443; 84702; 85025; 93005; 94760; 96360; 99284; G0480

== ENCOUNTER 2019-03-31 16:16 | Emergency (ER) | payer OTHER ==
[~2019-03-31] VITALS: Ht 165.1 cm; Wt 45.5 kg
[~2019-03-31 16:16] MED LIST changes: +ALPR0.25; +MECL-68 PO
[2019-03-31] MEDS ORDERED: TYLENOL 2 TABS (16:24)
[2019-03-31 17:19] LABS: BASO % 0.4 % (0.0-1.0); EOS # 0.2 10^3/uL (0.0-0.5); EOS % 2.7 % (0.0-3.0); HEMATOCRIT 38.9 % (36.0-47.0); HEMOGLOBIN 12.3 g/dl (12.0-15.5); LYMPH # 1.6 10^3/uL (1.5-5.0); LYMPH % 19.6 % (24.0-44.0); MEAN CORPUSCULAR HEMOGLOBIN 30.4 pg (27.0-33.0); MEAN CORPUSCULAR HGB CONC 31.6 g/dl (32.0-36.5); MONO # 0.5 10^3/uL (0.0-0.8); MONO % 6.1 % (0.0-5.0); NEUTROPHILS # 5.7 10^3/uL (1.5-8.5); NEUTROPHILS % 70.8 % (36.0-66.0); PLATELET COUNT, AUTOMATED 147 10^3/uL (150-450); RED BLOOD COUNT 4.05 10^6/uL (4.00-5.40); WHITE BLOOD COUNT 8.1 10^3/uL (4.0-10.0)
[2019-03-31 17:55] LABS: BLOOD UREA NITROGEN 8 MG/DL (7-18); CARBON DIOXIDE LEVEL 27 MEQ/L (21-32); CHLORIDE LEVEL 106 MEQ/L (98-107); CREATININE FOR GFR 0.53 MG/DL (0.55-1.30); GLOMERULAR FILTRATION RATE > 60.0 (>60); GLUCOSE, FASTING 92 MG/DL (70-100); HCG, SERUM QUANTITATIVE 4219 MIU/ML; POTASSIUM SERUM 3.5 MEQ/L (3.5-5.1); SODIUM LEVEL 138 MEQ/L (136-145)
--- NOTE | 2019-03-31 18:57 | REPVR ---
PROCEDURE INFORMATION: Exam: US First Trimester, Transabdominal and US , Transvaginal Exam date and time: 03/31/2019 6:08 PM Age: 28 years old Clinical history: Lmp or gestational age (in weeks): 7; Antepartum complications; Bleeding; Additional info: Pelvic pain; Bleeding; ? 7 weeks . Miscarriage at 7 weeks. Evaluate for retained products of conception. TECHNIQUE: Imaging protocol: Real-time transabdominal obstetrical ultrasound of the maternal pelvis and a first trimester , less than 14 weeks 0 days, with image documentation. Transvaginal imaging was used for better evaluation of the fetus and adnexa. COMPARISON: [facility], [facility] US 08/17/2017 12:30 PM FINDINGS: GESTATION: Gestation: No intrauterine gestational sac is identified. Heart rate: N./A. Placenta: N./A. Amniotic fluid: N./A. BIOMETRY: Estimated gestational age: N./A. MATERNAL: Uterus: Uterus measures 8.8 x 5.5 x 6.0 cm. Uterus is retroverted. AP endometrial stripe thickness measures 21 mm. The endometrium is heterogeneous. No definite hypervascular lesion within the endometrium. Cervix: Unremarkable. Right adnexa: Right ovary measures 1.8 x 3.8 x 1.9 cm. Positive blood flow. Left adnexa: Left ovary measures 4.9 x 2.9 x 2.6 cm. 2.1 cm left ovarian corpus luteum cyst. Positive left ovarian blood flow. Intraperitoneal: No intraperitoneal free fluid. IMPRESSION: Heterogeneously thickened endometrium. No definite focus of hypervascularity within the endometrium. Differential considerations include retained blood product versus retained products of conception. Electronically signed by: Kaila Nelson On 03/31/2019 18:56:59 PM
[2019-03-31 20:24] VITALS: BP 113/65
--- NOTE | 2019-04-01 10:37 | ED PDOC ---
Post-Departure Follow-Up dr roberto faxed formal report of ob us for Emery Almonte MD Apr 01, 2019 10:36
== END 2019-03-31 20:27 | disposition home or self-care (01) ==
LOC: M ED 16:16
DX: O03.9 Complete or unspecified spontaneous abortion without complication (principal); O99.331 Smoking (tobacco) complicating pregnancy, first trimester; O99.341 Other mental disorders complicating pregnancy, first trimester; Z3A.01 Less than 8 weeks gestation of pregnancy; Z88.8 Allergy status to other drugs, medicaments and biological substances

== ENCOUNTER 2019-05-11 14:40 | Emergency (ER) | payer OTHER ==
[~2019-05-11] VITALS: Ht 165.1 cm; Wt 46.7 kg
[~2019-05-11 14:40] MED LIST changes: -MECL-68 PO; +MECL1TAB31 PO; +TYLENOL 2 TABS
[2019-05-11] MEDS ORDERED: FLUO20CA19 (14:44)
[2019-05-11] MEDS ORDERED: ALPR0.25 (14:44)
[2019-05-11] MEDS ORDERED: ONDANSETRON 4MG/2ML VIAL (J2405) IV ONE (15:15)
[2019-05-11] MEDS ORDERED: NS 1,000 ML IV ONE (15:15)
[2019-05-11 15:17] LABS: BASO % 0.8 % (0.0-1.0); EOS # 0.2 10^3/uL (0.0-0.5); HEMATOCRIT 41.6 % (36.0-47.0); HEMOGLOBIN 12.9 g/dl (12.0-15.5); LYMPH # 1.1 10^3/uL (1.5-5.0); LYMPH % 21.1 % (24.0-44.0); MEAN CORPUSCULAR HEMOGLOBIN 29.3 pg (27.0-33.0); MEAN CORPUSCULAR VOLUME 94.3 fl (80.0-96.0); MONO # 0.3 10^3/uL (0.0-0.8); MONO % 6.1 % (0.0-5.0); NEUTROPHILS # 3.6 10^3/uL (1.5-8.5); NEUTROPHILS % 68.4 % (36.0-66.0); PLATELET COUNT, AUTOMATED 188 10^3/uL (150-450); RED BLOOD COUNT 4.41 10^6/uL (4.00-5.40); WHITE BLOOD COUNT 5.3 10^3/uL (4.0-10.0)
[2019-05-11 15:40] LABS: HCG, SERUM QUALITATIVE NEGATIVE (NEGATIVE)
[2019-05-11 15:41] LABS: ALBUMIN 4.6 GM/DL (3.2-5.2); ALT/SGPT 22 U/L (12-78); BILIRUBIN,DIRECT 0.1 MG/DL (0.0-0.2); BILIRUBIN,TOTAL 0.4 MG/DL (0.2-1.0); BLOOD UREA NITROGEN 7 MG/DL (7-18); CALCIUM LEVEL 9.1 MG/DL (8.5-10.1); CARBON DIOXIDE LEVEL 25 MEQ/L (21-32); CHLORIDE LEVEL 108 MEQ/L (98-107); CREATININE FOR GFR 0.62 MG/DL (0.55-1.30); GLOMERULAR FILTRATION RATE > 60.0 (>60); GLUCOSE, FASTING 93 MG/DL (70-100); LIPASE 155 U/L (73-393); SODIUM LEVEL 142 MEQ/L (136-145); TOTAL PROTEIN 8.2 GM/DL (6.4-8.2)
[2019-05-11 16:54] LABS: APPEARANCE, URINE CLEAR (CLEAR); BACTERIA, URINE AUTO NEGATIVE (NEGATIVE); BILIRUBIN, URINE AUTO NEGATIVE (NEGATIVE); BLOOD, URINE BLOOD 1+ (NEGATIVE); COLOR, URINE YELLOW (YELLOW); GLUCOSE, URINE (UA) AUTO NEGATIVE (NEGATIVE); KETONE, URINE AUTO NEGATIVE (NEGATIVE); LEUKOCYTE ESTERASE, URINE AUTO NEGATIVE (NEGATIVE); MUCUS, URINE SMALL (NEGATIVE); NITRITE, URINE AUTO NEGATIVE (NEGATIVE); PROTEIN, URINE AUTO NEGATIVE (NEGATIVE); RBC, URINE AUTO 10 /HPF (0-3); SPECIFIC GRAVITY URINE AUTO 1.012 (1.002-1.035); SQUAMOUS EPITHELIAL CELL UR AU 1 /HPF (0-6); UROBILINOGEN, URINE AUTO 0.2 mg/dL (0.0-2.0); WBC, URINE AUTO 0 /HPF (0-3)
[2019-05-11] MEDS ORDERED: ACETAMINOPHEN TAB 650MG DOSE (2X325MG) PO ONE (17:30)
--- NOTE | 2019-05-11 17:47 | REP ---
Clinical: Chest and abdominal pain. Technique: Upright view of the chest with supine and upright views of the abdomen and pelvis. Findings: Frontal upright view of the chest demonstrates no acute cardiopulmonary process or free air below the diaphragm to suspect pneumoperitoneum. Supine and upright views of the abdomen and pelvis demonstrate nonspecific bowel gas pattern without obstruction or perforation. No organomegaly. No abnormal calcifications. Skeletal structures normal for age. Impression: Nonspecific bowel gas pattern. Normal frontal chest x-ray. Electronically Signed by Bryan Munoz MD 05/11/2019 05:38 P
[2019-05-11] MEDS ORDERED: SIME180C PO (18:21)
[2019-05-11] MEDS ORDERED: ONDA4TAB6 PO (18:21)
[2019-05-11 18:28] VITALS: BP 109/69
[2019-05-11] MEDS ORDERED: SIMETHICONE 80 MG CHEW TAB PO ONE (18:30)
--- NOTE | 2019-05-11 20:23 | ECGEPIP ---
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 Order Number: [id number] Reading MD: Lefty Abbasi Measurements Intervals [place] Rate: 64 P: 28 PA: 131 QRS: 70 QRSD: 103 T: 43 QT: 413 QTc: 429 Interpretive Statements SINUS RHYTHM INCOMPLETE RIGHT BUNDLE BRANCH BLOCK SIMILAR TO 02/14/19 Electronically Signed on 05-11-2019 20:23:21 EST by Lefty Abbasi
== END 2019-05-11 18:40 | disposition home or self-care (01) ==
LOC: M ED 14:40
DX: R10.9 Unspecified abdominal pain (principal); R11.0 Nausea; R51 Headache; I45.19 Other right bundle-branch block; F41.9 Anxiety disorder, unspecified; F17.200 Nicotine dependence, unspecified, uncomplicated; Z79.899 Other long term (current) drug therapy; Z88.8 Allergy status to other drugs, medicaments and biological substances
CPT/HCPCS: 74021; 80048; 80076; 81001; 83690; 84702; 84703; 85025; 93005; 96374; 99284; J2405

== ENCOUNTER → 2019-06-12 | Outpatient (REF) | payer OTHER ==
[~2019-06-12] MED LIST changes: +FLUO20CA19; +ONDA4TAB6 PO; +SIME180C PO
[2019-06-12 19:46] LABS: INFLUENZA A AMPLIFICATION NEGATIVE (NEGATIVE); INFLUENZA B AMPLIFICATION POSITIVE (NEGATIVE)
== END ==
LOC: M LAB REF 15:43
PROVIDERS: ATTEND Physician Assistant
DX: J11.1 Influenza due to unidentified influenza virus with other respiratory manifestations (principal)

== ENCOUNTER → 2019-09-30 | Outpatient (REF) | payer OTHER ==
[~2019-09-30] MED LIST changes: -FLUO20CA19; +FLUO20CA22
== END ==
LOC: M LAB REF 19:30
PROVIDERS: ATTEND Nurse Practitioner Family
DX: R11.0 Nausea (principal)

== ENCOUNTER → 2019-12-30 | Outpatient (REF) | payer OTHER ==
[2019-12-30 19:37] LABS: APPEARANCE, URINE CLEAR (CLEAR); BACTERIA, URINE AUTO NEGATIVE (NEGATIVE); BILIRUBIN, URINE AUTO NEGATIVE (NEGATIVE); BLOOD, URINE BLOOD 2+ (NEGATIVE); COLOR, URINE STRAW (YELLOW); GLUCOSE, URINE (UA) AUTO NEGATIVE (NEGATIVE); KETONE, URINE AUTO NEGATIVE (NEGATIVE); LEUKOCYTE ESTERASE, URINE AUTO NEGATIVE (NEGATIVE); NITRITE, URINE AUTO NEGATIVE (NEGATIVE); PROTEIN, URINE AUTO NEGATIVE (NEGATIVE); RBC, URINE AUTO 1 /HPF (0-3); SPECIFIC GRAVITY URINE AUTO 1.002 (1.002-1.035); SQUAMOUS EPITHELIAL CELL UR AU 0 /HPF (0-6); UROBILINOGEN, URINE AUTO 0.2 mg/dL (0.0-2.0); WBC, URINE AUTO 0 /HPF (0-3)
== END ==
LOC: M LAB REF 17:53
PROVIDERS: ATTEND Physician Assistant Medical
DX: N39.0 Urinary tract infection, site not specified (principal)

== ENCOUNTER → 2020-02-09 | Outpatient (CLI) | payer OTHER ==
[2020-02-09 16:24] LABS: BASO % 0.4 % (0.0-1.0); EOS # 0.1 10^3/uL (0.0-0.5); EOS % 0.8 % (0.0-3.0); HEMATOCRIT 41.6 % (36.0-47.0); HEMOGLOBIN 13.2 g/dl (12.0-15.5); LYMPH # 1.5 10^3/uL (1.5-5.0); LYMPH % 16.1 % (24.0-44.0); MEAN CORPUSCULAR HEMOGLOBIN 28.7 pg (27.0-33.0); MEAN CORPUSCULAR HGB CONC 31.7 g/dl (32.0-36.5); MEAN CORPUSCULAR VOLUME 90.4 fl (80.0-96.0); MONO # 0.4 10^3/uL (0.0-0.8); MONO % 4.6 % (0.0-5.0); NEUTROPHILS # 7.1 10^3/uL (1.5-8.5); NEUTROPHILS % 77.9 % (36.0-66.0); PLATELET COUNT, AUTOMATED 179 10^3/uL (150-450); WHITE BLOOD COUNT 9.2 10^3/uL (4.0-10.0)
[2020-02-09 16:48] LABS: ALBUMIN 4.6 GM/DL (3.2-5.2); ALT/SGPT 12 U/L (12-78); AMYLASE 43 U/L (25-115); BILIRUBIN,TOTAL 0.4 MG/DL (0.2-1.0); BLOOD UREA NITROGEN 8 MG/DL (7-18); CALCIUM LEVEL 9.4 MG/DL (8.5-10.1); CARBON DIOXIDE LEVEL 26 MEQ/L (21-32); CHLORIDE LEVEL 108 MEQ/L (98-107); CREATININE FOR GFR 0.55 MG/DL (0.55-1.30); GLOMERULAR FILTRATION RATE > 60.0 (>60); GLUCOSE, FASTING 92 MG/DL (70-100); LIPASE 106 U/L (73-393); POTASSIUM SERUM 4.1 MEQ/L (3.5-5.1); SODIUM LEVEL 139 MEQ/L (136-145)
--- NOTE | 2020-02-15 11:47 | REP ---
[facility] ABDOMEN AND PELVIS HISTORY: Abdominal pain. TECHNIQUE: Single AP view of the abdomen and pelvis is performed. FINDINGS: Bowel gas pattern is unremarkable. Mild scattered air and fecal material are seen throughout the colon. There is no evidence of small bowel obstruction. No abnormal calcifications are seen in the abdomen or pelvis. The visualized osseous structures are unremarkable. IMPRESSION: Negative exam. MTDD
== END ==
LOC: M WUC 13:57
PROVIDERS: ATTEND Physician Assistant
DX: R10.84 Generalized abdominal pain (principal)

== ENCOUNTER 2020-02-11 14:24 | Emergency (ER) | payer OTHER ==
[~2020-02-11] VITALS: Ht 165.1 cm; Wt 50.0 kg
[2020-02-11 15:18] LABS: BASO % 0.5 % (0.0-1.0); EOS # 0.1 10^3/uL (0.0-0.5); EOS % 1.1 % (0.0-3.0); HEMATOCRIT 42.8 % (36.0-47.0); HEMOGLOBIN 13.7 g/dl (12.0-15.5); LYMPH # 1.3 10^3/uL (1.5-5.0); LYMPH % 16.2 % (24.0-44.0); MEAN CORPUSCULAR HEMOGLOBIN 29.1 pg (27.0-33.0); MEAN CORPUSCULAR VOLUME 91.1 fl (80.0-96.0); MONO # 0.4 10^3/uL (0.0-0.8); MONO % 4.7 % (0.0-5.0); NEUTROPHILS # 6.1 10^3/uL (1.5-8.5); NEUTROPHILS % 77.4 % (36.0-66.0); PLATELET COUNT, AUTOMATED 183 10^3/uL (150-450); WHITE BLOOD COUNT 7.8 10^3/uL (4.0-10.0)
[2020-02-11 15:36] LABS: BILIRUBIN,DIRECT 0.1 MG/DL (0.0-0.2); BILIRUBIN,TOTAL 0.4 MG/DL (0.2-1.0); TOTAL PROTEIN 8.7 GM/DL (6.4-8.2)
[2020-02-11] MEDS ORDERED: GASTROGRAFIN SOLUTION 30ML (Q9963) As Ordered ONE (16:18)
[2020-02-11] MEDS: GASTROGRAFIN SOLUTION 30ML PO SCH ×2 (16:25→16:52)
[2020-02-11 17:46] VITALS: BP 114/77
[2020-02-11] MEDS ORDERED: ISOVUE-370 76% 100ML VIAL As Ordered ONE (18:08)
--- NOTE | 2020-02-11 18:54 | REPVR ---
PROCEDURE INFORMATION: Exam: CT Abdomen And Pelvis With Contrast Exam date and time: 02/11/2020 6:14 PM Age: 29 years old Clinical indication: Abdominal pain; Additional info: Rlq pain TECHNIQUE: Imaging protocol: Computed tomography of the abdomen and pelvis with intravenous contrast. Radiation optimization: All CT scans at this facility use at least one of these dose optimization techniques: automated exposure control; mA and/or kV adjustment per patient size (includes targeted exams where dose is matched to clinical indication); or iterative reconstruction. Contrast material: ISOVUE 370; Contrast volume: 100 ml; Contrast route: INTRAVENOUS (IV); Other contrast: Oral; COMPARISON: CT ABD PELVIS W/O CONTRAST 02/14/2019 12:19 PM FINDINGS: Liver: Normal. No mass. Gallbladder and bile ducts: Gallbladder not fully distended. Otherwise unremarkable. Pancreas: Normal. No ductal dilation. Spleen: Normal. No splenomegaly. Adrenals: Normal. No mass. Kidneys and ureters: Punctate nonobstructive calculus lower pole left kidney. Stomach and bowel: Unremarkable. No obstruction. No mucosal thickening. Appendix: The appendix is within normal limits. There is no appendiceal enlargement, periappendiceal inflammatory changes or abscess. Intraperitoneal space: There is minimal fluid in the cul-de-sac most likely physiologic. Clinical correlation to exclude other causes of cul-de-sac fluid suggested. Vasculature: Unremarkable. No abdominal aortic aneurysm. Lymph nodes: Unremarkable. No enlarged lymph nodes. Urinary bladder: Unremarkable as visualized. Reproductive: Widened central endometrial lucency. Correlation with menstrual history suggested. Bones/joints: Unremarkable. No acute fracture. Soft tissues: Unremarkable. IMPRESSION: 1. Punctate nonobstructive calculus lower pole left kidney. 2. The appendix is within normal limits. There is no appendiceal enlargement, periappendiceal inflammatory changes or abscess. 3. Widened central endometrial lucency. Correlation with menstrual history suggested. Electronically signed by: Johnie Giraldo On 02/11/2020 18:53:15 PM
== END 2020-02-11 19:10 | disposition home or self-care (01) ==
LOC: M ED 14:24
DX: N93.8 Other specified abnormal uterine and vaginal bleeding (principal); N20.0 Calculus of kidney; R51.9 Headache, unspecified; F41.9 Anxiety disorder, unspecified; F17.200 Nicotine dependence, unspecified, uncomplicated; Z79.899 Other long term (current) drug therapy; Z88.8 Allergy status to other drugs, medicaments and biological substances
CPT/HCPCS: 74177; 80047; 80076; 81001; 83690; 84702; 85025; 87086; 99284; Q9967

== ENCOUNTER → 2020-07-10 | Outpatient (REF) | payer OTHER ==
[2020-07-10 13:33] LABS: HEMATOCRIT 41.2 % (36.0-47.0); HEMOGLOBIN 13.3 g/dl (12.0-15.5); MEAN CORPUSCULAR HEMOGLOBIN 29.2 pg (27.0-33.0); MEAN CORPUSCULAR HGB CONC 32.3 g/dl (32.0-36.5); MEAN CORPUSCULAR VOLUME 90.4 fl (80.0-96.0); PLATELET COUNT, AUTOMATED 191 10^3/uL (150-450); RED BLOOD COUNT 4.56 10^6/uL (4.00-5.40); WHITE BLOOD COUNT 7.1 10^3/uL (4.0-10.0)
[2020-07-10 14:04] LABS: HCG, SERUM QUANTITATIVE 998 MIU/ML
[2020-07-10 14:52] LABS: HEPATITIS C VIRUS ABY INDEX < 0.0 INDEX (<0.8); HIV 1&2 SCREEN CENTAUR NEGATIVE (NEGATIVE)
== END ==
LOC: M LAB REF 11:58
PROVIDERS: ATTEND Advanced Practice Midwife
DX: O36.80X0 Pregnancy with inconclusive fetal viability, not applicable or unspecified (principal)

== ENCOUNTER → 2020-07-12 | Outpatient (REF) | payer OTHER | LOC: M LAB REF 12:13 | PROVIDERS: ATTEND Obstetrics & Gynecology | DX: O36.80X0 Pregnancy with inconclusive fetal viability, not applicable or unspecified (principal) ==

== ENCOUNTER → 2020-07-16 | Outpatient (REF) | payer OTHER | LOC: M LAB REF 16:26 | PROVIDERS: ATTEND Obstetrics & Gynecology | DX: O36.80X0 Pregnancy with inconclusive fetal viability, not applicable or unspecified (principal) ==

== ENCOUNTER → 2020-07-23 | Outpatient (CLI) | payer OTHER | LOC: M WUC 12:46 | PROVIDERS: ATTEND Obstetrics & Gynecology | DX: O36.80X0 Pregnancy with inconclusive fetal viability, not applicable or unspecified (principal) ==

== ENCOUNTER → 2020-07-25 | Outpatient (CLI) | payer OTHER ==
--- NOTE | 2020-07-25 11:15 | REP ---
INDICATION: DATING AND VIABILITY COMPARISON: None. TECHNIQUE: Transabdominal and transvaginal 1st trimester obstetrical ultrasound with color Doppler evaluation. FINDINGS: Heterogeneous uterus with early intrauterine . Gestational sac with yolk sac and pole identified. [place]-rump length of 7 mm corresponds to 6 weeks 4 days gestational age with estimated date of delivery 03/16/2021. heart rate equals 116 beats per minute. There is a suspected subchorionic hemorrhage inferior and to the left of the gestational sac measuring 38 x 20 x 43 mm. Left ovary measures 3.5 x 1.8 x 1.1 cm and includes 1.1 x 0.8 x 1.1 cm complex physiologic cyst. Right ovary measures 5.1 x 2.1 x 2.7 cm and includes 2.2 x 1.8 x 1.1 cm presumed corpus luteum cyst. IMPRESSION: 1. Single live early intrauterine at 6 weeks 4 days gestational age. Complete anatomical assessment should be performed and 19-20 weeks. 2. Suspected moderate sized subchorionic hemorrhage. <Electronically signed by Bryan Munoz > 07/25/20 1111
== END ==
LOC: M RAD 10:16
PROVIDERS: ATTEND Advanced Practice Midwife
DX: Z36.87 Encounter for antenatal screening for uncertain dates (principal); O36.80X0 Pregnancy with inconclusive fetal viability, not applicable or unspecified; Z3A.01 Less than 8 weeks gestation of pregnancy

== ENCOUNTER 2020-08-06 15:44 | Emergency (ER) | payer OTHER ==
[~2020-08-06] VITALS: Ht 165.1 cm; Wt 47.3 kg
[2020-08-06] MEDS ORDERED: PRENTAB9 PO (15:54)
--- NOTE | 2020-08-06 18:52 | REP ---
INDICATION: vaginal bleeding, 8 wks preg. COMPARISON: Comparison sonography July 25, 2020.. TECHNIQUE: Transabdominal and transvaginal scanning. FINDINGS: Uterine dimensions are 9.2 x 4.4 x 5.4 cm. Uterus retroverted. There is a single intrauterine gestation in a gestational sac within the uterus. The crown-rump length of the embryonic pole is 16 mm. This would correspond with an 8 week 1 day gestational age estimate. However, no motion or cardiac motion could be detected and this is felt to be consistent with intrauterine demise. No free fluid is seen in the cul-de-sac. Right ovarian dimensions are 5.0 x 2.0 x 1.7 cm. There is a hemorrhagic cyst in the right ovary measuring 1.6 cm in greatest diameter. Left ovary measures 2.1 x 1.3 x 1.6 cm. Doppler flow is present in both ovaries. Resistive indices are 0.45 on the right and 0.64 on the left. IMPRESSION: Findings consistent with intrauterine demise at 8 weeks 1 day by crown-rump length. No motion or cardiac motion is observed. <Electronically signed by Sorin Martinez > 08/06/20 [id number]
[2020-08-06 19:19] LABS: BASO % 0.5 % (0.0-1.0); EOS # 0.2 10^3/uL (0.0-0.5); EOS % 2.2 % (0.0-3.0); HEMATOCRIT 40.7 % (36.0-47.0); HEMOGLOBIN 13.2 g/dl (12.0-15.5); LYMPH # 1.7 10^3/uL (1.5-5.0); LYMPH % 19.2 % (24.0-44.0); MEAN CORPUSCULAR HEMOGLOBIN 30.1 pg (27.0-33.0); MEAN CORPUSCULAR HGB CONC 32.4 g/dl (32.0-36.5); MEAN CORPUSCULAR VOLUME 92.7 fl (80.0-96.0); MONO # 0.4 10^3/uL (0.0-0.8); MONO % 4.2 % (2.0-8.0); NEUTROPHILS # 6.5 10^3/uL (1.5-8.5); NEUTROPHILS % 73.6 % (36.0-66.0); PLATELET COUNT, AUTOMATED 191 10^3/uL (150-450); RED BLOOD COUNT 4.39 10^6/uL (4.00-5.40); WHITE BLOOD COUNT 8.8 10^3/uL (4.0-10.0)
[2020-08-06 20:00] LABS: BLOOD UREA NITROGEN 8 MG/DL (7-18); CALCIUM LEVEL 9.4 MG/DL (8.5-10.1); CARBON DIOXIDE LEVEL 27 MEQ/L (21-32); CHLORIDE LEVEL 106 MEQ/L (98-107); CREATININE FOR GFR 0.44 MG/DL (0.55-1.30); GLOMERULAR FILTRATION RATE > 60.0 (>60); GLUCOSE, FASTING 81 MG/DL (70-100); HCG, SERUM QUANTITATIVE 16262 MIU/ML; POTASSIUM SERUM 3.7 MEQ/L (3.5-5.1); SODIUM LEVEL 139 MEQ/L (136-145)
[2020-08-06 20:44] VITALS: BP 155/87
== END 2020-08-06 20:48 | disposition home or self-care (01) ==
LOC: M ED 15:44
DX: O02.1 Missed abortion (principal); Z87.59 Personal history of other complications of pregnancy, childbirth and the puerperium; N85.4 Malposition of uterus; N83.291 Other ovarian cyst, right side; Z88.8 Allergy status to other drugs, medicaments and biological substances

== ENCOUNTER → 2020-08-14 | Outpatient (REF) | payer OTHER ==
[~2020-08-14] MED LIST changes: +PRENTAB9 PO
== END ==
LOC: M LAB REF 16:17
PROVIDERS: ATTEND Obstetrics & Gynecology
DX: O03.4 Incomplete spontaneous abortion without complication (principal)

== ENCOUNTER → 2020-08-21 | Outpatient (REF) | payer OTHER ==
[~2020-08-21] MED LIST changes: -SIME180C PO; +SIME180C25 PO
== END ==
LOC: M LAB REF 11:20
PROVIDERS: ATTEND Obstetrics & Gynecology
DX: O03.4 Incomplete spontaneous abortion without complication (principal)

== ENCOUNTER → 2020-08-28 | Outpatient (REF) | payer OTHER | LOC: M LAB REF 11:27 | PROVIDERS: ATTEND Obstetrics & Gynecology | DX: O03.4 Incomplete spontaneous abortion without complication (principal) ==

== ENCOUNTER → 2020-09-04 | Outpatient (REF) | payer OTHER | LOC: M LAB REF 12:04 | PROVIDERS: ATTEND Obstetrics & Gynecology | DX: O03.4 Incomplete spontaneous abortion without complication (principal) ==

== ENCOUNTER → 2020-09-11 | Outpatient (REF) | payer OTHER | LOC: M LAB REF 16:33 | PROVIDERS: ATTEND Obstetrics & Gynecology | DX: O03.4 Incomplete spontaneous abortion without complication (principal) ==

== ENCOUNTER → 2020-12-13 | Outpatient (REF) | payer OTHER ==
[2020-12-13 18:13] LABS: HEMATOCRIT 41.4 % (36.0-47.0); HEMOGLOBIN 13.8 g/dl (12.0-15.5); MEAN CORPUSCULAR HEMOGLOBIN 31.2 pg (27.0-33.0); MEAN CORPUSCULAR HGB CONC 33.3 g/dl (32.0-36.5); MEAN CORPUSCULAR VOLUME 93.5 fl (80.0-96.0); PLATELET COUNT, AUTOMATED 171 10^3/uL (150-450); RED BLOOD COUNT 4.43 10^6/uL (4.00-5.40); WHITE BLOOD COUNT 7.4 10^3/uL (4.0-10.0)
[2020-12-13 19:37] LABS: HCG, SERUM QUANTITATIVE 29506 MIU/ML; HEPATITIS B SURFACE ANTIGEN NEGATIVE (NEGATIVE); HEPATITIS C VIRUS ABY INDEX 0.1 INDEX (<0.8); HIV 1&2 SCREEN CENTAUR NEGATIVE (NEGATIVE)
== END ==
LOC: M LAB REF 17:22
PROVIDERS: ATTEND Obstetrics & Gynecology
DX: O36.80X0 Pregnancy with inconclusive fetal viability, not applicable or unspecified (principal); Z32.01 Encounter for pregnancy test, result positive

== ENCOUNTER 2021-01-20 09:48 | Emergency (ER) | payer OTHER ==
[~2021-01-20] VITALS: Ht 165.1 cm; Wt 48.8 kg
[2021-01-20] MEDS ORDERED: diphenhydrAMINE 50MG/ML VIAL (J1200) IV ONE (11:30)
[2021-01-20] MEDS ORDERED: METOCLOPRAMIDE INJ 10MG/2ML VIAL (J2765 PER 1) IV ONE (11:30)
[2021-01-20] MEDS ORDERED: NS 1,000 ML IV ONE (11:30)
[2021-01-20 15:13] LABS: BASO % 0.3 % (0.0-1.0); EOS # 0.1 10^3/uL (0.0-0.5); EOS % 0.6 % (0.0-3.0); HEMATOCRIT 36.1 % (36.0-47.0); LYMPH # 1.2 10^3/uL (1.5-5.0); LYMPH % 10.5 % (24.0-44.0); MEAN CORPUSCULAR HEMOGLOBIN 31.1 pg (27.0-33.0); MEAN CORPUSCULAR HGB CONC 33.2 g/dl (32.0-36.5); MEAN CORPUSCULAR VOLUME 93.5 fl (80.0-96.0); MONO # 0.5 10^3/uL (0.0-0.8); NEUTROPHILS # 9.7 10^3/uL (1.5-8.5); NEUTROPHILS % 84.3 % (36.0-66.0); PLATELET COUNT, AUTOMATED 144 10^3/uL (150-450); RED BLOOD COUNT 3.86 10^6/uL (4.00-5.40); WHITE BLOOD COUNT 11.5 10^3/uL (4.0-10.0)
[2021-01-20 15:35] LABS: ALBUMIN 3.3 GM/DL (3.2-5.2); ALT/SGPT 12 U/L (12-78); BILIRUBIN,DIRECT 0.1 MG/DL (0.0-0.2); BILIRUBIN,TOTAL 0.4 MG/DL (0.2-1.0); BLOOD UREA NITROGEN 8 MG/DL (7-18); CARBON DIOXIDE LEVEL 20 MEQ/L (21-32); CHLORIDE LEVEL 112 MEQ/L (98-107); CREATININE FOR GFR 0.33 MG/DL (0.55-1.30); GLOMERULAR FILTRATION RATE > 60.0 (>60); GLUCOSE, FASTING 97 MG/DL (70-100); POTASSIUM SERUM 3.2 MEQ/L (3.5-5.1); SODIUM LEVEL 139 MEQ/L (136-145); TOTAL PROTEIN 6.4 GM/DL (6.4-8.2)
[2021-01-20] MEDS ORDERED: POTA10TA16 PO (15:58)
[2021-01-20 16:00] VITALS: BP 112/62
[2021-01-20 16:22] LABS: MAGNESIUM LEVEL 1.7 MG/DL (1.8-2.4)
--- NOTE | 2021-01-20 20:12 | ECGEPIP ---
[facility] - ED Test Date: 2021-01-20 Pat Name: NANY CUMMINGS Department: Room: - Gender: Female Rn Procedure: DANNY : 1990 Requested By: Steph Wilson PA-C Order Number: [id number] Reading MD: Josseline Mclaughlin Measurements Intervals [place] Rate: 70 P: 4 MT: 138 QRS: 59 QRSD: 94 T: 24 QT: 404 QTc: 436 Interpretive Statements Normal sinus rhythm Incomplete right bundle branch block similar 05/11/19 Electronically Signed on 01-20-2021 20:12:42 EDT by Josseline Mclaughlin
== END 2021-01-20 16:14 | disposition home or self-care (01) ==
LOC: M ED 09:48
DX: O26.90 Pregnancy related conditions, unspecified, unspecified trimester (principal); R42 Dizziness and giddiness; O26.899 Other specified pregnancy related conditions, unspecified trimester; R11.0 Nausea; O99.350 Diseases of the nervous system complicating pregnancy, unspecified trimester; R51.9 Headache, unspecified; O99.119 Other diseases of the blood and blood-forming organs and certain disorders involving the immune mechanism complicating pregnancy, unspecified trimester; D72.829 Elevated white blood cell count, unspecified; D69.6 Thrombocytopenia, unspecified; R94.31 Abnormal electrocardiogram [ECG] [EKG]; O99.333 Smoking (tobacco) complicating pregnancy, third trimester; F17.200 Nicotine dependence, unspecified, uncomplicated; Z88.8 Allergy status to other drugs, medicaments and biological substances; Z3A.13 13 weeks gestation of pregnancy
CPT/HCPCS: 80048; 80076; 83735; 85025; 93005; 96361; 96374; 99284; J1200; J2765

== ENCOUNTER → 2021-02-05 | Outpatient (REF) | payer OTHER ==
[~2021-02-05] MED LIST changes: +POTA10TA16 PO
== END ==
LOC: M LAB REF 11:46
PROVIDERS: ATTEND Obstetrics & Gynecology
DX: Z34.81 Encounter for supervision of other normal pregnancy, first trimester (principal)

== ENCOUNTER → 2021-04-02 | Outpatient (REF) | payer OTHER | LOC: M LAB REF 12:22 | PROVIDERS: ATTEND Advanced Practice Midwife | DX: R30.0 Dysuria (principal) ==

== ENCOUNTER 2021-06-11 13:36 | Outpatient (CLI) | payer OTHER ==
[~2021-06-11] VITALS: Ht 165.1 cm; Wt 60.9 kg
[~2021-06-11 13:36] MED LIST changes: +POTA-149 PO; -POTA10TA16 PO
[2021-06-11 13:52] VITALS: BP 119/75
[2021-06-11] MEDS ORDERED: HOME MED LIST COMPLETE! XX SCH (14:05)
[2021-06-11 14:48] VITALS: BP 112/68
[2021-06-11 15:41] VITALS: BP 119/75
== END 2021-06-11 15:53 | disposition home or self-care (01) ==
LOC: M LDO 13:36
PROVIDERS: ATTEND Obstetrics & Gynecology
DX: O9A.213 Injury, poisoning and certain other consequences of external causes complicating pregnancy, third trimester (principal); W00.9XXA Unspecified fall due to ice and snow, initial encounter; Y92.9 Unspecified place or not applicable; Y93.9 Activity, unspecified; Y99.9 Unspecified external cause status; Z3A.32 32 weeks gestation of pregnancy

== ENCOUNTER → 2021-07-02 | Outpatient (REF) | payer OTHER | LOC: M LAB REF 12:01 | PROVIDERS: ATTEND Obstetrics & Gynecology | DX: Z34.83 Encounter for supervision of other normal pregnancy, third trimester (principal); Z3A.36 36 weeks gestation of pregnancy; Z36.85 Encounter for antenatal screening for Streptococcus B ==

== ENCOUNTER 2022-01-25 08:27 | Emergency (ER) | payer OTHER ==
[~2022-01-25] VITALS: Ht 160 cm; Wt 48.1 kg
[~2022-01-25 08:27] MED LIST changes: +ACET-897 PO; +COLA100C5 PO; +IBUP80TA PO; +PERCOCET PO; +TUMS750C5 PO
[2022-01-25] MEDS ORDERED: KETOROLAC 30 MG/ML 1ML VIAL IV ONE (09:30)
[2022-01-25] MEDS ORDERED: ONDANSETRON 4MG 2ML VIAL IV ONE (09:30)
[2022-01-25] MEDS ORDERED: NS 1,000 ML IV ONE (09:30)
[2022-01-25 09:48] LABS: BASO % 0.1 % (0.0-1.0); HEMATOCRIT 39.7 % (36.0-47.0); HEMOGLOBIN 13.4 g/dl (12.0-15.5); LYMPH # 0.4 10^3/uL (1.5-5.0); LYMPH % 2.3 % (24.0-44.0); MEAN CORPUSCULAR HEMOGLOBIN 31.2 pg (27.0-33.0); MEAN CORPUSCULAR HGB CONC 33.8 g/dl (32.0-36.5); MEAN CORPUSCULAR VOLUME 92.3 fl (80.0-96.0); MONO # 0.5 10^3/uL (0.0-0.8); NEUTROPHILS # 16.7 10^3/uL (1.5-8.5); NEUTROPHILS % 94.1 % (36.0-66.0); PLATELET COUNT, AUTOMATED 147 10^3/uL (150-450); WHITE BLOOD COUNT 17.8 10^3/uL (4.0-10.0)
[2022-01-25 10:27] LABS: ALBUMIN 4.2 GM/DL (3.2-5.2); ALT/SGPT 9 U/L (12-78); BILIRUBIN,DIRECT 0.3 MG/DL (0.0-0.2); BILIRUBIN,TOTAL 1.2 MG/DL (0.2-1.0); BLOOD UREA NITROGEN 13 MG/DL (7-18); CARBON DIOXIDE LEVEL 26 MEQ/L (21-32); CHLORIDE LEVEL 108 MEQ/L (98-107); CREATININE FOR GFR 0.58 MG/DL (0.55-1.30); GLOMERULAR FILTRATION RATE > 60.0 (>60); GLUCOSE, FASTING 110 MG/DL (70-100); LIPASE 64 U/L (73-393); POTASSIUM SERUM 3.6 MEQ/L (3.5-5.1); SODIUM LEVEL 138 MEQ/L (136-145); TOTAL PROTEIN 7.2 GM/DL (6.4-8.2)
[2022-01-25] MEDS ORDERED: GASTROGRAFIN SOLUTION 30ML (Q9963) As Ordered ONE (10:55)
[2022-01-25] MEDS: GASTROGRAFIN SOLUTION 30ML PO SCH ×2 (11:09→11:39)
[2022-01-25] MEDS ORDERED: ISOVUE-370 76% 100ML VIAL As Ordered ONE (11:38)
[2022-01-25] MEDS ORDERED: ONDA4TAB6 PO (13:31)
[2022-01-25] MEDS ORDERED: SIME180C25 PO (13:31)
[2022-01-25] MEDS ORDERED: DICY10CA13 PO (13:31)
[2022-01-25 13:51] VITALS: BP 105/63
== END 2022-01-25 13:52 | disposition home or self-care (01) ==
LOC: M ED 08:27
DX: K52.9 Noninfective gastroenteritis and colitis, unspecified (principal); F17.200 Nicotine dependence, unspecified, uncomplicated; Z88.8 Allergy status to other drugs, medicaments and biological substances; N83.202 Unspecified ovarian cyst, left side; Z97.5 Presence of (intrauterine) contraceptive device; Z79.899 Other long term (current) drug therapy
CPT/HCPCS: 74177; 80048; 80076; 81000; 81015; 83690; 84702; 85025; 87086; 96361; 96374; 96375; 99284; J1885; J2405; Q9967

== ENCOUNTER 2022-05-10 20:26 | Emergency (ER) | payer OTHER ==
[~2022-05-10] VITALS: Ht 165.1 cm; Wt 48.5 kg
[~2022-05-10 20:26] MED LIST changes: -CEPH500C PO
[2022-05-10 20:29] VITALS: BP 133/76
[2022-05-11] MEDS ORDERED: CEPH500C PO (21:44)
== END 2022-05-11 02:19 | disposition left against medical advice (07) ==
LOC: M ED 20:26
DX: Z53.21 Procedure and treatment not carried out due to patient leaving prior to being seen by health care provider (principal)

== ENCOUNTER → 2022-05-10 | Outpatient (REF) | payer OTHER ==
[~2022-05-10] MED LIST changes: +CEPH500C PO; +DICY10CA13 PO
== END ==
LOC: M WUC 19:03
PROVIDERS: ATTEND Student in an Organized Health Care Education/Training Program
DX: R10.84 Generalized abdominal pain (principal)

== ENCOUNTER 2022-05-11 19:13 | Emergency (ER) | payer OTHER ==
[~2022-05-11] VITALS: Ht 165.1 cm; Wt 49.7 kg
[2022-05-11] MEDS ORDERED: NS 1,000 ML IV ONE (19:50)
[2022-05-11 20:05] LABS: BASO % 0.4 % (0.0-1.0); EOS # 0.1 10^3/uL (0.0-0.5); EOS % 1.4 % (0.0-3.0); HEMATOCRIT 39.9 % (36.0-47.0); HEMOGLOBIN 13.1 g/dl (12.0-15.5); LYMPH % 18.2 % (24.0-44.0); MEAN CORPUSCULAR HGB CONC 32.8 g/dl (32.0-36.5); MEAN CORPUSCULAR VOLUME 94.3 fl (80.0-96.0); MONO # 0.3 10^3/uL (0.0-0.8); MONO % 5.1 % (2.0-8.0); NEUTROPHILS # 4.1 10^3/uL (1.5-8.5); NEUTROPHILS % 74.5 % (36.0-66.0); PLATELET COUNT, AUTOMATED 134 10^3/uL (150-450); RED BLOOD COUNT 4.23 10^6/uL (4.00-5.40); WHITE BLOOD COUNT 5.5 10^3/uL (4.0-10.0)
[2022-05-11 20:25] LABS: LIPASE 37 U/L (12-53)
[2022-05-11 20:27] LABS: ALBUMIN 4.5 G/DL (3.2-5.2); ALKALINE PHOSPHATASE 51 U/L (46-116); ALT/SGPT < 9 U/L (7.0-40); AST/SGOT 22 U/L (<34); BILIRUBIN,DIRECT 0.2 MG/DL (<0.4); BILIRUBIN,TOTAL 0.5 MG/DL (0.3-1.2); BLOOD UREA NITROGEN 12 MG/DL (9-23); CALCIUM LEVEL 9.2 MG/DL (8.5-10.1); CARBON DIOXIDE LEVEL 24 MMOL/L (20-31); CHLORIDE LEVEL 103 MMOL/L (98-107); CREATININE FOR GFR 0.56 MG/DL (0.55-1.30); GLOMERULAR FILTRATION RATE > 60.0 (>60); GLUCOSE, FASTING 83 MG/DL (60-100); POTASSIUM SERUM 3.7 MMOL/L (3.5-5.1); SODIUM LEVEL 138 MMOL/L (136-145); TOTAL PROTEIN 7.5 G/DL (5.7-8.2)
[2022-05-11] MEDS ORDERED: OMEPRAZOLE 20MG CAP PO ONE (21:00)
[2022-05-11] MEDS ORDERED: CEPH500C PO (21:44)
[2022-05-11] MEDS ORDERED: CEPHALEXIN 500 MG CAP PO ONE (21:45)
[2022-05-11 21:52] VITALS: BP 120/84
== END 2022-05-11 22:20 | disposition home or self-care (01) ==
LOC: M ED 19:13
DX: N39.0 Urinary tract infection, site not specified (principal); F41.9 Anxiety disorder, unspecified; F32.9 Major depressive disorder, single episode, unspecified; Z87.891 Personal history of nicotine dependence; Z97.5 Presence of (intrauterine) contraceptive device; Z88.8 Allergy status to other drugs, medicaments and biological substances

== ENCOUNTER 2022-09-12 17:26 | Emergency (ER) | payer OTHER ==
[~2022-09-12] VITALS: Ht 165.1 cm; Wt 49.5 kg
[~2022-09-12 17:26] MED LIST changes: +CEPH500C PO
[2022-09-12] MEDS ORDERED: IBUP200C25 PO (18:40)
[2022-09-12] MEDS ORDERED: ACET-683 PO (18:40)
[2022-09-12] MEDS ORDERED: LIDOCAINE 5% (LIDODERM) PATCH TD ONE (19:35)
[2022-09-12] MEDS ORDERED: KETOROLAC 30 MG/ML 1ML VIAL IV ONE (19:35)
[2022-09-12] MEDS ORDERED: NS 1,000 ML IV ONE (19:35)
[2022-09-12 19:55] VITALS: BP 144/87
[2022-09-12 20:03] LABS: BASO % 0.5 % (0.0-1.0); EOS # 0.2 10^3/uL (0.0-0.5); EOS % 2.5 % (0.0-3.0); HEMATOCRIT 40.2 % (36.0-47.0); HEMOGLOBIN 13.2 g/dl (12.0-15.5); LYMPH # 1.5 10^3/uL (1.5-5.0); MEAN CORPUSCULAR HEMOGLOBIN 31.1 pg (27.0-33.0); MEAN CORPUSCULAR HGB CONC 32.8 g/dl (32.0-36.5); MEAN CORPUSCULAR VOLUME 94.8 fl (80.0-96.0); MONO # 0.3 10^3/uL (0.0-0.8); MONO % 5.2 % (2.0-8.0); NEUTROPHILS # 4.3 10^3/uL (1.5-8.5); NEUTROPHILS % 68.6 % (36.0-66.0); PLATELET COUNT, AUTOMATED 159 10^3/uL (150-450); RED BLOOD COUNT 4.24 10^6/uL (4.00-5.40); WHITE BLOOD COUNT 6.3 10^3/uL (4.0-10.0)
[2022-09-12 20:05] LABS: APPEARANCE, URINE CLEAR (CLEAR); BACTERIA, URINE AUTO 1+ (NEGATIVE); BILIRUBIN, URINE AUTO NEGATIVE (NEGATIVE); BLOOD, URINE BLOOD 2+ (NEGATIVE); COLOR, URINE YELLOW (YELLOW); GLUCOSE, URINE (UA) AUTO NEGATIVE (NEGATIVE); KETONE, URINE AUTO NEGATIVE (NEGATIVE); LEUKOCYTE ESTERASE, URINE AUTO TRACE (NEGATIVE); NITRITE, URINE AUTO NEGATIVE (NEGATIVE); PROTEIN, URINE AUTO NEGATIVE (NEGATIVE); RBC, URINE AUTO 3 /HPF (0-3); SPECIFIC GRAVITY URINE AUTO 1.012 (1.002-1.035); SQUAMOUS EPITHELIAL CELL UR AU 1 /HPF (0-6); UROBILINOGEN, URINE AUTO 0.2 mg/dL (0.0-2.0); WBC, URINE AUTO 2 /HPF (0-3)
[2022-09-12 20:27] LABS: BLOOD UREA NITROGEN 12 MG/DL (9-23); CALCIUM LEVEL 8.6 MG/DL (8.5-10.1); CARBON DIOXIDE LEVEL 29 MMOL/L (20-31); CHLORIDE LEVEL 108 MMOL/L (98-107); CREATININE FOR GFR 0.57 MG/DL (0.55-1.30); GLOMERULAR FILTRATION RATE > 60.0 (>60); GLUCOSE, FASTING 88 MG/DL (60-100); POTASSIUM SERUM 3.8 MMOL/L (3.5-5.1); SODIUM LEVEL 141 MMOL/L (136-145)
[2022-09-12] MEDS ORDERED: LIDO5DIS41 TOP (21:02)
[2022-09-12] MEDS ORDERED: CYCL5TAB PO (21:03)
[2022-09-12] MEDS ORDERED: CYCLOBENZAPRINE 5MG TABLET PO ONE (21:10)
== END 2022-09-12 21:30 | disposition home or self-care (01) ==
LOC: M ED 17:26
DX: M54.31 Sciatica, right side (principal); R42 Dizziness and giddiness; F17.200 Nicotine dependence, unspecified, uncomplicated; Z88.8 Allergy status to other drugs, medicaments and biological substances
CPT/HCPCS: 36415; 80048; 81001; 84702; 85025; 96374; 99284; J1885

== ENCOUNTER 2023-03-06 12:53 | Emergency (ER) | payer OTHER ==
[~2023-03-06] VITALS: Ht 165.1 cm; Wt 49.1 kg
[~2023-03-06 12:53] MED LIST changes: +ACET-683 PO; +CYCL5TAB PO; +DICY-61 PO; -DICY10CA13 PO; +IBUP200C25 PO; +LIDO5DIS41 TOP; +MECL-209 PO; -MECL1TAB31 PO
[2023-03-06 15:30] VITALS: BP 124/67; TEMP 97.8; O2SAT 99
== END 2023-03-06 16:06 | disposition home or self-care (01) ==
LOC: M ED 12:53
DX: R07.89 Other chest pain (principal); I45.10 Unspecified right bundle-branch block; R51.9 Headache, unspecified; F17.200 Nicotine dependence, unspecified, uncomplicated; Z88.8 Allergy status to other drugs, medicaments and biological substances; Z79.891 Long term (current) use of opiate analgesic; Z79.1 Long term (current) use of non-steroidal anti-inflammatories (NSAID); Z79.899 Other long term (current) drug therapy

== ENCOUNTER 2023-06-04 13:42 | Emergency (ER) | payer OTHER ==
[~2023-06-04] VITALS: Ht 165.1 cm; Wt 50.7 kg
[2023-06-04] MEDS ORDERED: MIREIUD (13:49)
[2023-06-04 15:09] LABS: RSV AMPLIFICATION NEGATIVE (NEGATIVE)
[2023-06-04 17:14] LABS: BASO % 0.4 % (0.0-1.0); EOS # 0.3 10^3/uL (0.0-0.5); EOS % 3.5 % (0.0-3.0); HEMOGLOBIN 13.1 g/dl (12.0-15.5); LYMPH # 1.5 10^3/uL (1.5-5.0); MEAN CORPUSCULAR HEMOGLOBIN 31.2 pg (27.0-33.0); MEAN CORPUSCULAR HGB CONC 32.8 g/dl (32.0-36.5); MEAN CORPUSCULAR VOLUME 95.2 fl (80.0-96.0); MONO # 0.4 10^3/uL (0.0-0.8); MONO % 5.2 % (2.0-8.0); NEUTROPHILS # 5.8 10^3/uL (1.5-8.5); NEUTROPHILS % 71.7 % (36.0-66.0); PLATELET COUNT, AUTOMATED 168 10^3/uL (150-450); WHITE BLOOD COUNT 8.1 10^3/uL (4.0-10.0)
[2023-06-04 17:24] LABS: BLOOD UREA NITROGEN 11 MG/DL (9-23); CALCIUM LEVEL 9.1 MG/DL (8.5-10.1); CARBON DIOXIDE LEVEL 27 MMOL/L (20-31); CHLORIDE LEVEL 107 MMOL/L (98-107); CK-MB VALUE MASS < 1.0 NG/ML (<3.6); CREATININE FOR GFR 0.44 MG/DL (0.55-1.30); GLOMERULAR FILTRATION RATE > 60.0 (>60); GLUCOSE, FASTING 97 MG/DL (60-100); MAGNESIUM LEVEL 1.9 MG/DL (1.8-2.4); POTASSIUM SERUM 3.8 MMOL/L (3.5-5.1); SODIUM LEVEL 138 MMOL/L (136-145)
[2023-06-04 17:27] LABS: CPK CREATINE PHOSPHOKINASE 59 U/L (34-145); MB/CK RELATIVE INDEX 1.69 (< OR =4)
[2023-06-04 19:10] LABS: RSV AMPLIFICATION NEGATIVE (NEGATIVE)
[2023-06-04 19:15] LABS: CK-MB VALUE MASS < 1.0 NG/ML (<3.6)
[2023-06-04 19:17] LABS: CPK CREATINE PHOSPHOKINASE 45 U/L (34-145); MB/CK RELATIVE INDEX 2.22 (< OR =4)
[2023-06-04 19:36] VITALS: BP 137/88; TEMP 97.9; O2SAT 99
== END 2023-06-04 19:41 | disposition home or self-care (01) ==
LOC: M ED 13:42
DX: R07.9 Chest pain, unspecified (principal); I45.10 Unspecified right bundle-branch block; Z79.1 Long term (current) use of non-steroidal anti-inflammatories (NSAID); Z79.899 Other long term (current) drug therapy

== ENCOUNTER 2024-01-13 11:52 | Emergency (ER) | payer OTHER ==
[~2024-01-13] VITALS: Ht 165.1 cm; Wt 50.6 kg
[~2024-01-13 11:52] MED LIST changes: +FLUO-365; -FLUO20CA22; +MIREIUD; +ONDA-282 PO; -ONDA4TAB6 PO
[2024-01-13 13:47] VITALS: BP 119/82; TEMP 97.1; O2SAT 98
== END 2024-01-13 13:48 | disposition home or self-care (01) ==
LOC: M ED 11:52
DX: U07.1 COVID-19 (principal); Z87.891 Personal history of nicotine dependence